=== PATIENT | female | born 1970 | race African-American/Black ===

== ENCOUNTER → 2016-10-16 | Outpatient (CLI) | payer MEDICAID ==
--- NOTE | 2016-10-16 13:22 | RADIOLOGY REPORT (SQ) ---
EXAM DESCRIPTION: U/S THYROID/SFT TISS HD NECK COMPLETED DATE/TIME: 10/16/2016 11:27 am REASON FOR STUDY: ABNORMAL THYROID E07.9 DISORDER OF THYROID, UNSPECIFIED COMPARISON: None. TECHNIQUE: Dynamic and static hughes-scale images acquired of the thyroid gland. Selected additional c olor/power Doppler images recorded. All images stored to PACS. LIMITATIONS: None. FINDINGS: RIGHT LOBE: Enlarged, measuring 5.2 cm. Heterogeneous echotexture. Multiple cysts and hy poechoic nodules ranging in size from 5 to 9 mm. LEFT LOBE: Enlarged, measuring 5.7 cm. Heterogeneous echotexture. Multiple cysts and hypoechoic nod ules. Most measure less than 1 cm but there is a dominant heterogenous solid and cystic nodule measu ring 1.5 x 1.9 x 2.4 cm. ISTHMUS: Thickened, measuring 1 cm. Heterogeneous echotexture. No cystic or solid masses. OTHER: No other significant finding. IMPRESSION: DIFFUSE THYROMEGALY WITH HETEROGENOUS ECHOTEXTURE. MULTIPLE NODULES AND CYSTS, MOST OF WHICH MEASURE LESS THAN 1 CM, CONSISTENT WITH MULTINODULAR GOITER. HOWEVER, THERE IS A DOMINANT COMP MUMTAZ SOLID AND CYSTIC NODULE IN THE LEFT LOBE MEASURING 2.4 CM. BIOPSY SHOULD BE CONSIDERED. THIS IS AMENABLE TO PERCUTANEOUS ULTRASOUND-GUIDED BIOPSY. COMMENT: RECOMMENDATIONS FOR THYROID NODULES 1 CM OR LARGER Solitary nodules: Microcalcifications - FNA if 1 cm or greater. Solid or coarse calcification - FNA if 1.5 cm or greater. Mixed Solid/Cystic or Cystic with Mural Nodule - FNA if 2 cm or greater. None of the above but substantial growth since previous - FNA. Cystic with none of the above features and no significant growth - no FNA. Multiple nodules: Use above criteria for selection of nodules to FNA/biopsy. Biopsy probably not necessary in enlarged gland with multiple nodules of similar appearance. Abnormal lymph nodes - FNA/biopsy. Reference: Management of Thyroid Nodules Detected at [place]: Society of Radiologists in Ultrasound Consensus Stateme nt. Radiology 2005; 237:794-800 TECHNICAL DOCUMENTATION: JOB ID: [id number] [employer]- All Rights Reserved
== END ==
LOC: RAD 10:56
PROVIDERS: ATTEND Family Medicine
DX: E04.1 Nontoxic single thyroid nodule (principal)
CPT/HCPCS: 76536

== ENCOUNTER → 2017-06-14 | Outpatient (CLI) | payer MEDICAID ==
[2017-06-14 10:28] LABS: ABSOLUTE EOSINOPHILS # (AUTO) 0.1 10^3/uL (0.0-0.6); ABSOLUTE LYMPHOCYTES (AUTO) 1.6 10^3/uL (0.5-4.7); ABSOLUTE MONOCYTES (AUTO) 0.5 10^3/uL (0.1-1.4); ABSOLUTE NEUT (AUTO) 4.4 10^3/uL (1.7-8.2); BASOPHILS % (AUTO) 0.7 % (0-2); EOSINOPHILS % (AUTO) 1.5 % (0-6); HEMATOCRIT 36.9 % (36.0-47.0); HEMOGLOBIN 12.7 g/dL (12.0-15.5); MEAN CORPUSCULAR HGB CONC 34.4 g/dL (32.0-36.0); MEAN CORPUSCULAR VOLUME 90 fl (80-97); MONOCYTES % (AUTO) 8.2 % (3-13); PLATELET COUNT 280 10^3/uL (150-450); RED BLOOD COUNT 4.09 10^6/uL (3.72-5.28); RED CELL DISTRIBUTION WIDTH 13.9 % (11.5-14.0); SEGMENTED NEUTROPHILS % (AUTO) 65.6 % (42-78); TOTAL CELLS COUNTED % (AUTO) 100 %; WHITE BLOOD COUNT 6.6 10^3/uL (4.0-10.5)
[2017-06-14 10:52] LABS: ALANINE AMINOTRANSFERASE 29 U/L (9-52); ALBUMIN 4.3 g/dL (3.5-5.0); ALKALINE PHOSPHATASE 76 U/L (38-126); ASPARTATE AMINO TRANSFERASE 20 U/L (14-36); BILIRUBIN,DIRECT 0.1 mg/dL (0.0-0.4); BILIRUBIN,TOTAL 0.2 mg/dL (0.2-1.3); BLOOD UREA NITROGEN 13 mg/dL (7-20); CALCIUM 9.5 mg/dL (8.4-10.2); CARBON DIOXIDE 26 mmol/L (22-30); CHOLESTEROL 183.42 mg/dL (0-200); GLUCOSE 84 mg/dL (75-110); TOTAL PROTEIN 7.3 g/dL (6.3-8.2); TRIGLYCERIDES 38 mg/dL (<150)
[2017-06-14 10:58] LABS: ANION GAP 9 (5-19); CHLORIDE 106 mmol/L (98-107); POTASSIUM 4.6 mmol/L (3.6-5.0); SODIUM 140.9 mmol/L (137-145)
[2017-06-14 11:03] LABS: DIRECT LDL 122 mg/dL (<100)
== END ==
LOC: OD 08:50
PROVIDERS: ATTEND Nurse Practitioner Psychiatric/Mental Health
DX: F20.9 Schizophrenia, unspecified (principal); Z79.899 Other long term (current) drug therapy
CPT/HCPCS: 36415; 80053; 80061; 83036; 84443; 85025

== ENCOUNTER → 2018-10-13 | Outpatient (CLI) | payer MEDICAID ==
--- NOTE | 2018-10-13 12:54 | RADIOLOGY REPORT (SQ) ---
EXAM DESCRIPTION: U/S THYROID/SFT TISS HD NECK COMPLETED DATE/TIME: 10/13/2018 11:52 am REASON FOR STUDY: ABN THYROID FUNCTION (R94.6) R94.6 ABNORMAL RESULTS OF THYROID FUNCTION STUDIES COMPARISON: 10/16/2016 TECHNIQUE: Dynamic and static hughes-scale images acquired of the thyroid gland. Selected additional c olor/power Doppler images recorded. All images stored to PACS. LIMITATIONS: None. FINDINGS: RIGHT LOBE: Enlarged, 8.2 x 2.5 x 3 cm. Heterogeneous echotexture. There is a complex le daniela in the upper pole that measures 1 cm in largest diameter. LEFT LOBE: Enlarged, 7.3 x 2.7 x 2.5 cm. Heterogeneous echotexture. There is a complex lesion in th e midportion of the left lobe measuring 2 cm in largest diameter. There is a 1.4 cm hypoechoic solid lesion in the left lower pole of the left lobe. ISTHMUS: Enlarged, 10 mm. Heterogeneous echotexture. No cystic or solid masses. OTHER: No other significant finding. IMPRESSION: Multinodular goiter. There are 2 lesions in the left lobe a that meet the size criteria for biopsy. COMMENT: RECOMMENDATIONS FOR THYROID NODULES 1 CM OR LARGER Solitary nodules: Microcalcifications - FNA if 1 cm or greater. Solid or coarse calcification - FNA if 1.5 cm or greater. Mixed Solid/Cystic or Cystic with Mural Nodule - FNA if 2 cm or greater. None of the above but substantial growth since previous - FNA. Cystic with none of the above features and no significant growth - no FNA. Multiple nodules: Use above criteria for selection of nodules to FNA/biopsy. Biopsy probably not necessary in enlarged gland with multiple nodules of similar appearance. Abnormal lymph nodes - FNA/biopsy. Reference: Management of Thyroid Nodules Detected at [place]: Society of Radiologists in Ultrasound Consensus Stateme nt. Radiology 2005; 237:794-800 TECHNICAL DOCUMENTATION: JOB ID: [id number] [employer]- All Rights Reserved Reading location - IP/workstation name: [email or web address]
== END ==
LOC: RAD 10:57
PROVIDERS: ATTEND Physician Assistant
DX: E04.2 Nontoxic multinodular goiter (principal)
CPT/HCPCS: 76536

== ENCOUNTER → 2018-12-21 | Outpatient (CLI) | payer MEDICAID ==
--- NOTE | 2018-12-21 23:54 | XCELERA REPORT ---
[address] [address] Transthoracic Echocardiogram Report Name: SASHA SHARMA Age: 48 yrs Gender: Female : 1970 Patient Status: Outpatient Patient Location: Study Date: 12/21/2018 10:55 AM Height: 60 in Weight: 143 lb BSA: 1.6 m2 Procedure: A two-dimensional transthoracic echocardiogram with color flow and Doppler was performed. Study Quality: Fair. Reason For Study: EDEMA History: EDEMA. Ordering Physician: FADI WEBB Performed By: Trini Carey Interpretation Summary The left ventricle is normal in size. There is normal left ventricular wall thickness. LV EF is 65% Left ventricular systolic function is normal. Doppler measurements suggest normal left ventricular diastolic function The left ventricular wall motion is normal. There is no thrombus. No ASD ,VSD , or PFO seen. The right ventricle is not well visualized secondary to technical limitations The right atrium is normal. The left atrial size is normal. There is no evidence of mitral valve prolapse. There is no vegetation seen on the mitral valve. There is no mitral valve stenosis. There is a trace amount of mitral regurgitation There is no aortic valve stenosis There is no LVOT obstruction. No aortic regurgitation is present. There is no tricuspid stenosis. Right ventricular systolic pressure is at the upper limits of normal RVSP is 27 mm of Hg , with RA mean of 5. There is no pulmonic valvular stenosis. There is a trace amount of pulmonic regurgitation The aortic root is normal size. There is no pericardial effusion. MMode/2D Measurements & Calculations RVDd: 2.9 cm LVIDd: 4.1 cm FS: 35.0 % Ao root diam: 2.3 cm IVSd: 0.70 cm LVIDs: 2.7 cm EDV(Teich): Ao root area: LVPWd: 0.85 cm 75.5 ml 4.2 cm2 ESV(Teich): 26.6 ml EF(Teich): 64.7 % EDV(MOD-sp4): SV(MOD-sp4): 63.1 ml 42.1 ml ESV(MOD-sp4): 21.1 ml EF(MOD-sp4): 66.7 % Doppler Measurements & Calculations MV E max maritza: MV dec slope: Ao V2 max: LV V1 max P.6 cm/sec 110.8 cm/sec 2.8 mmHg MV A max maritza: 608.0 cm/sec2 Ao max P.9 mmHgLV V1 max: 74.1 cm/sec MV dec time: 0.14 sec 83.0 cm/sec MV E/A: 1.2 PA V2 max: PI end-d maritza: TR max maritza: 72.9 cm/sec 67.4 cm/sec 233.2 cm/sec PA max P.1 mmHg TR max P.7 mmHg Left Ventricle The left ventricle is normal in size. There is normal left ventricular wall thickness. LV EF is 65%. Left ventricular systolic function is normal. Doppler measurements suggest normal left ventricular diastolic function. The left ventricular wall motion is normal. There is no thrombus. No ASD ,VSD , or PFO seen. Right Ventricle The right ventricle is not well visualized secondary to technical limitations. Atria The right atrium is normal. The left atrial size is normal. Mitral Valve There is no evidence of mitral valve prolapse. There is no vegetation seen on the mitral valve. There is no mitral valve stenosis. There is a trace amount of mitral regurgitation. Aortic Valve There is no aortic valvular vegetation. There is no aortic valve stenosis. There is no LVOT obstruction. No aortic regurgitation is present. Tricuspid Valve There is no tricuspid stenosis. Right ventricular systolic pressure is at the upper limits of normal. RVSP is 27 mm of Hg , with RA mean of 5. Pulmonic Valve There is no pulmonic valvular stenosis. There is a trace amount of pulmonic regurgitation. Great Vessels The aortic root is normal size. Effusions There is no pericardial effusion. : FADI WEBB > Ju Naik
== END ==
LOC: SP 10:33
PROVIDERS: ATTEND Physician Assistant
DX: R60.0 Localized edema (principal)
CPT/HCPCS: 93306

== ENCOUNTER → 2019-06-02 | Outpatient (CLI) | payer MEDICAID ==
--- NOTE | 2019-06-02 15:16 | WOMENS IMAGING REPORT ---
EXAM DESCRIPTION: 3D SCREENING MAMMO BILAT COMPLETED DATE/TIME: 06/02/2019 9:16 am REASON FOR STUDY: Z12.31 ENCOUNTER FOR SCREENING MAMMOGRAM FOR MALIGNANT NEOPLASM OF BREAST Z12.31 ENCNTR SCREEN MAMMOGRAM FOR MALIGNANT NEOPLASM OF MAK COMPARISON: 12/06/2014 EXAM PARAMETERS: Standard craniocaudal and mediolateral oblique views of each breast recorded using digital acquisition and breast tomosynthesis. Read with the assistance of CAD. .[facility] - Wow! Stuff Protection Officer Version 9.2 LIMITATIONS: None. FINDINGS: Findings present which are benign by mammographic criteria. No suspicious masses, calcific ations or architectural distortion. Pertinent benign findings: A benign intramammary lymph node in the right breast is unchanged. Benign mammographic findings may include one or more of the following: Smooth masses, popcorn/rim/coa rse calcifications, asymmetries, post-procedure changes, and lesions with long-standing stability. IMPRESSION: BENIGN MAMMOGRAPHIC FINDINGS. BIRADS 2 BREAST DENSITY: a. The breasts are almost entirely fatty. BIRAD: ASSESSMENT: 2 BENIGN FINDING(S) RECOMMENDATION: ROUTINE SCREENING COMMENT: The patient has been notified of the results by letter per SA requirements. Additional no tification policies are in place for contacting patient with suspicious or incomplete findings. Quality ID #[id number]: The [employer] recommends an annual screening mammogram for women aged 40 years or over. This facility utilizes a reminder system to ensure that all patients receive reminder letters, and/or direct phone calls for appointments. This includes reminders for routine scr eening mammograms, diagnostic mammograms, or other Breast Imaging Interventions when appropriate. Th is patient will be placed in the appropriate reminder system. TECHNICAL DOCUMENTATION: FINDING NUMBER: (1) ASSESSMENT: (1) JOB ID: [id number] [employer]- All Rights Reserved Reading location - IP/workstation name: [email or web address]
== END ==
LOC: WI 09:40
PROVIDERS: ATTEND Physician Assistant
DX: Z12.31 Encounter for screening mammogram for malignant neoplasm of breast (principal)
CPT/HCPCS: 77063; 77067

== ENCOUNTER 2019-08-25 13:06 | Emergency (ER) | payer MEDICAID ==
--- NOTE | 2019-08-25 13:32 | ER Document Report ---
ED Medical Screen (RME) - General Stated Complaint: ABNORMAL LABS Time Seen by Provider: 08/25/19 13:28 Primary Care Provider: MISA MAYER PA [Primary Care Provider] - Follow up as needed Mode of Arrival: Ambulatory Information source: Patient Notes: 49-year-old female patient presenting to the emergency department with reports of abnormal labs. Patient reports she was seen at Dr. Salas's office and they told her that her hemoglobin was very low. Patient is unsure what the exact number was. She states it was drawn yesterday. She denies any symptoms, states she feels fine denies weakness, fatigue, syncope, chest pain, shortness of breath. She appears well, nontoxic vital signs are within normal limits. I have greeted and performed a rapid initial assessment of this patient. A comprehensive ED assessment and evaluation of the patient, analysis of test results and completion of the medical decision making process will be conducted by additional ED providers. I have specifically instructed the patient or family members with the patient to immediately return to any nursing staff should anything change in the patient's condition or with their chief complaint. TRAVEL OUTSIDE OF THE [place] IN LAST 30 DAYS: No - Related Data Allergies/Adverse Reactions: No Known Allergies Allergy (Verified 08/25/19 13:28) Past Medical History - Past Medical History Cardiac Medical History: Reports: Hx Hypertension Renal/ Medical History: Reports: Hx Ovarian Cysts Psychiatric Medical History: Reports: Hx Schizophrenia Past Surgical History: Reports: Hx Appendectomy, Hx Gynecologic Surgery - Ruptured ovarian cyst removed Physical Exam - Vital signs Vitals: Temp Pulse Resp BP Pulse Ox 98.8 F 95 16 106/53 L 100 08/25/19 13:12 08/25/19 13:12 08/25/19 13:12 08/25/19 13:12 08/25/19 13:12 Course - Vital Signs Vital signs: Temp Pulse Resp BP Pulse Ox 98.8 F 95 16 106/53 L 100 08/25/19 13:12 08/25/19 13:12 08/25/19 13:12 08/25/19 13:12 08/25/19 13:12 Doctor's Discharge - Discharge Referrals: MISA MAYER PA [Primary Care Provider] - Follow up as needed
[2019-08-25] MEDS ORDERED: NORMAL SALINE 250 ML IV PRN ×2 (14:41→17:09)
[2019-08-25 14:47] LABS: ALBUMIN 3.7 g/dL (3.5-5.0); ALKALINE PHOSPHATASE 75 U/L (38-126); ASPARTATE AMINO TRANSFERASE 45 U/L (14-36); BILIRUBIN,DIRECT 0.2 mg/dL (0.0-0.4); BILIRUBIN,TOTAL 0.2 mg/dL (0.2-1.3); BLOOD UREA NITROGEN 10 mg/dL (7-20); CALCIUM 8.8 mg/dL (8.4-10.2); CARBON DIOXIDE 30 mmol/L (22-30); GLUCOSE 89 mg/dL (75-110); POTASSIUM 4.3 mmol/L (3.6-5.0); TOTAL PROTEIN 6.8 g/dL (6.3-8.2)
[2019-08-25 14:50] LABS: CHLORIDE 106 mmol/L (98-107)
[2019-08-25 14:54] LABS: ANION GAP 4 (5-19); HEMATOCRIT 16.7 % (36.0-47.0); MEAN CORPUSCULAR HEMOGLOBIN 34.8 pg (27.0-33.4); MEAN CORPUSCULAR HGB CONC 34.9 g/dL (32.0-36.0); MEAN CORPUSCULAR VOLUME 100 fl (80-97); RED BLOOD COUNT 1.67 10^6/uL (3.72-5.28); RED CELL DISTRIBUTION WIDTH 14.3 % (11.5-14.0); WHITE BLOOD COUNT 6.7 10^3/uL (4.0-10.5)
[2019-08-25 14:58] LABS: HEMOGLOBIN 5.8 g/dL (12.0-15.5)
[2019-08-25 14:59] LABS: PLATELET COUNT 18 10^3/uL (150-450)
[2019-08-25 16:01] LABS: ABSOLUTE LYMPHOCYTES# (MANUAL) 3.9 10^3/uL (0.5-4.7); ABSOLUTE MONOCYTES # (MANUAL) 0.5 10^3/uL (0.1-1.4); ANISOCYTOSIS SLIGHT; BASOPHILS % (MANUAL) 0 % (0-2); EOSINOPHILS % (MANUAL) 0 % (0-6); HYPOCHROMASIA SLIGHT; LYMPHOCYTES % (MANUAL) 38 % (13-45); MONOCYTES % (MANUAL) 8 % (3-13); OVALOCYTES SLIGHT; SEGMENTED NEUTROPHILS % (MAN) 7 % (42-78); TOTAL CELLS COUNTED 100
[2019-08-25 16:02] LABS: PLATELET COMMENT DECREASED
--- NOTE | 2019-08-25 17:17 | ER Document Report ---
ED General - General Chief Complaint: Abnormal Lab Results Stated Complaint: ABNORMAL LABS Time Seen by Provider: 08/25/19 13:28 Primary Care Provider: MISA MAYER PA [NO LOCAL MD] - Follow up as needed Mode of Arrival: Ambulatory TRAVEL OUTSIDE OF THE [place] IN LAST 30 DAYS: No - HPI Notes: Patient presents from Dr. Salas's office. She was sent here due to having a low hemoglobin at Dr. Salas's office. Patient states that the main reason she went to Dr. Salas's office today sees you been having bilateral arm pain for 2 to 3 days. She states been a diffuse achy pain and has been constant in both arms. Nothing makes it better or worse. It does radiate up both arms. She states she is also been feeling weak and has had been having her menstrual period for about 9 days. While she was at the office today a hemoglobin was drawn and was not iced to be 5.3. Platelets are also noted to be low. Therefore she was referred here to the emergency department. No vomiting or diarrhea. - Related Data Allergies/Adverse Reactions: No Known Allergies Allergy (Verified 08/25/19 13:28) Home Medications: atenolol, risperodone, meloxicam, fluoxetine, benztropine Past Medical History - General Information source: Patient - Social History Smoking Status: Never Smoker Chew tobacco use (# tins/day): No Frequency of alcohol use: None Drug Abuse: None Family History: Arthritis, CAD, CVA, DM, Hyperlipidemia, Hypertension, Malignancy, Thyroid Disfunction Patient has suicidal ideation: No Patient has homicidal ideation: No - Past Medical History Cardiac Medical History: Reports: Hx Hypertension Renal/ Medical History: Reports: Hx Ovarian Cysts Psychiatric Medical History: Reports: Hx Schizophrenia Past Surgical History: Reports: Hx Appendectomy, Hx Gynecologic Surgery - Ruptured ovarian cyst removed Review of Systems - Review of Systems Constitutional: Malaise, Weakness. denies: Chills, Fever Cardiovascular: denies: Chest pain, Palpitations Respiratory: denies: Cough, Short of breath -: Yes All other systems reviewed and negative Physical Exam - Vital signs Vitals: Temp Pulse Resp BP Pulse Ox 98.8 F 95 16 106/53 L 100 08/25/19 13:12 08/25/19 13:12 08/25/19 13:12 08/25/19 13:12 08/25/19 13:12 Interpretation: Normal - General General appearance: Appears well, Alert - HEENT Head: Normocephalic, Atraumatic Eyes: Normal Pupils: PERRL - Respiratory Respiratory status: No respiratory distress Chest status: Nontender Breath sounds: Normal Chest palpation: Normal - Cardiovascular Rhythm: Regular Heart sounds: Normal auscultation Murmur: No - Abdominal Inspection: Normal Distension: No distension Bowel sounds: Normal Tenderness: Nontender Organomegaly: No organomegaly - Back Back: Normal, Nontender - Extremities General upper extremity: Normal inspection, Nontender, Normal color, Normal ROM, Normal temperature General lower extremity: Normal inspection, Nontender, Normal color, Normal ROM, Normal temperature, Normal weight bearing. 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 Her hemoglobin will be treated with 2 units of RBCs. Her platelet count will be treated with a unit of platelets. I have discussed transfer with the [facility]. Patient has been informed of the diagnosis and need for transfer. - Vital Signs Vital signs: Temp Pulse Resp BP Pulse Ox 98.8 F 82 17 110/66 100 08/25/19 17:19 08/25/19 17:19 08/25/19 17:19 08/25/19 17:19 08/25/19 17:19 - Laboratory Result Diagrams: 08/25/19 14:08 08/25/19 14:08 Laboratory results interpreted by me: 08/25/19 08/25/19 08/25/19 14:08 14:08 14:08 RBC 1.67 L Hgb 5.8 L Hct 16.7 L MCV 100 H MCH 34.8 H RDW 14.3 H Plt Count 18 L* Seg Neuts % (Manual) 7 L Abs Neuts (Manual) 0.5 L Anion Gap 4 L AST 45 H ALT 41 H Crossmatch See Detail Critical Care Note - Critical Care Note Total time excluding time spent on procedures (mins): 50 Comments: Approximately 50 minutes of critical care time were spent managing this patient's acute leukemia with anemia and thrombocytopenia. This was spent talking with multiple consultants. It was spent doing multiple reassessments. There were spent reviewing labs. Discharge - Discharge Clinical Impression: Thrombocytopenia Acute leukemia Qualifiers: Leukemia Active/Remission status: without remission Qualified Code(s): C95.00 - Acute leukemia of unspecified cell type not having achieved remission Anemia Qualifiers: Anemia type: bone marrow failure Bone marrow failure anemia type: other bone marrow failure Qualified Code(s): D61.89 - Other specified aplastic anemias and other bone marrow failure syndromes Condition: Serious Disposition: [facility] Referrals: MISA MAYER PA [NO LOCAL MD] - Follow up as needed
[2019-08-25 17:20] LABS: IMMATURE MONONUCLEAR% (MANUAL) 47 % (0)
[2019-08-25 19:29] LABS: INTERNATIONAL RATION (INR) 1.27
[2019-08-25 19:30] LABS: FIBRINOGEN 252 mg/dL (209-497); PARTIAL THROMBOPLASTIN TIME 27.5 SEC (23.5-35.8)
[2019-08-25 19:50] VITALS: BP 112/65
--- NOTE | 2019-08-25 19:50 | ER Document Report ---
Doctor's Note Notes: 08/25/19 19:49 49-year-old lady primarily worked up today by Dr. Rajeev Luevano and found to have acute leukemia. She has been accepted now for transfer to the hematology oncology service at [facility]. I have completed the entire form and have reevaluated the patient at this time and feel that she is stable for transfer.
== END 2019-08-25 20:08 | disposition short-term general hospital (02) ==
LOC: ER 13:06
DX: D69.6 Thrombocytopenia, unspecified (principal); C95.00 Acute leukemia of unspecified cell type not having achieved remission; D61.89 Other specified aplastic anemias and other bone marrow failure syndromes; R79.89 Other specified abnormal findings of blood chemistry; M79.604 Pain in right leg; M79.605 Pain in left leg; R53.1 Weakness; Z79.899 Other long term (current) drug therapy; I10 Essential (primary) hypertension
CPT/HCPCS: 99291; 96360; 96361; 86900; 86901; 36415; 36430; 86850; 83615; 84550; 85025; 85384; 85610; 85730; 80053; 86920; P9016; P9035; J7050

== ENCOUNTER 2020-01-01 08:23 | Outpatient (CLI) | payer MEDICAID ==
[2020-01-01] MEDS ORDERED: FUROSEMIDE INJ/PF 20 MG/2 ML SDV IV PRN (08:44)
[2020-01-01] MEDS ORDERED: ACETAMINOPHEN 325 MG TABLET PO PRN (08:44)
[2020-01-01] MEDS ORDERED: DIPHENHYDRAMINE HCL 25 MG CAPSULE PO PRN (08:44)
[2020-01-01 10:26] LABS: HEMATOCRIT 17.7 % (36.0-47.0); MEAN CORPUSCULAR HEMOGLOBIN 32.5 pg (27.0-33.4); MEAN CORPUSCULAR HGB CONC 34.8 g/dL (32.0-36.0); MEAN CORPUSCULAR VOLUME 93 fl (80-97); RED CELL DISTRIBUTION WIDTH 20.9 % (11.5-14.0)
[2020-01-01 10:32] LABS: WHITE BLOOD COUNT 0.4 10^3/uL (4.0-10.5)
[2020-01-01 10:42] LABS: HEMOGLOBIN 6.2 g/dL (12.0-15.5); PLATELET COUNT 20 10^3/uL (150-450)
[2020-01-01] MEDS ORDERED: NORMAL SALINE INJ/PF 0.9% 10 ML SDV IV PRN (13:37)
[2020-01-01] MEDS ORDERED: MIDOSTAURIN 50 MG PO SCH (18:00)
[2020-01-01] MEDS ORDERED: BENZTROPINE MESYLATE 1 MG TABLET PO SCH (18:00)
[2020-01-01] MEDS ORDERED: RISPERIDONE 1 MG TABLET PO SCH (18:00)
[2020-01-01] MEDS ORDERED: FAMOTIDINE 20 MG TABLET PO SCH (18:00)
[2020-01-01 21:55] VITALS: BP 120/76
[2020-01-02] MEDS ORDERED: FLUOXETINE HCL 20 MG CAPSULE PO SCH (08:00)
[2020-01-02] MEDS ORDERED: MEDROXYPROGESTERONE ACET 10 MG TABLET PO SCH (08:00)
[2020-01-02] MEDS ORDERED: LEVOFLOXACIN 500 MG TABLET PO SCH (10:00)
[2020-01-02] MEDS ORDERED: FLUCONAZOLE 100 MG TABLET PO SCH (10:00)
[2020-01-02] MEDS ORDERED: VALACYCLOVIR HCL 500 MG TABLET PO SCH (10:00)
== END 2020-01-01 22:01 | disposition home or self-care (01) ==
LOC: II 08:23 → 4N 08:24 → II 22:01
PROVIDERS: ATTEND Internal Medicine
DX: D64.9 Anemia, unspecified (principal)
CPT/HCPCS: 86900; 86901; 36415; 36430; 86850; 86920; 96374; P9016; P9035; J3490 ×5; J1940; J1642

== ENCOUNTER 2020-02-06 19:25 | Inpatient (IN) | payer MEDICAID ==
[2020-02-06] MEDS ORDERED: ACETAMINOPHEN 325 MG TABLET PO ONE (20:08)
[2020-02-06] MEDS ORDERED: NORMAL SALINE 1000 ML 1,000 ML IV ONE (20:09)
--- NOTE | 2020-02-06 20:10 | ER Document Report ---
ED Medical Screen (RME) - General Chief Complaint: Fever Stated Complaint: FEVER,DIZZINESS/LUEKEMIA Time Seen by Provider: 02/06/20 20:08 Primary Care Provider: RONNA NAVARRO MD [Primary Care Provider] - Follow up as needed Notes: Patient presents with fever that started today. Patient complains of dizziness. Patient had nausea with vomiting 2 days ago but none since then. Patient denies any cough or cold symptoms. 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 I have greeted and performed a rapid initial assessment of this patient. A comprehensive ED assessment and evaluation of the patient, analysis of test results and completion of the medical decision making process will be conducted by additional ED providers. TRAVEL OUTSIDE OF THE [place] IN LAST 30 DAYS: No - Related Data Allergies/Adverse Reactions: No Known Allergies Allergy (Verified 08/25/19 13:28) Past Medical History - Past Medical History Cardiac Medical History: Reports: Hx Hypertension Renal/ Medical History: Reports: Hx Ovarian Cysts Psychiatric Medical History: Reports: Hx Schizophrenia Past Surgical History: Reports: Hx Appendectomy, Hx Gynecologic Surgery - Ruptured ovarian cyst removed Physical Exam - Vital signs Vitals: Temp Pulse Resp BP Pulse Ox 101.4 F H 108 H 18 114/65 99 02/06/20 19:33 02/06/20 19:33 02/06/20 19:33 02/06/20 19:33 02/06/20 19:33 - Respiratory Respiratory status: No respiratory distress - Cardiovascular Rhythm: Tachycardia Heart sounds: S1 appreciated, S2 appreciated Murmur: No Course - Vital Signs Vital signs: Temp Pulse Resp BP Pulse Ox 101.4 F H 108 H 18 114/65 99 02/06/20 19:33 02/06/20 19:33 02/06/20 19:33 02/06/20 19:33 02/06/20 19:33 Doctor's Discharge - Discharge Referrals: RONNA NAVARRO MD [Primary Care Provider] - Follow up as needed
[2020-02-06 21:23] LABS: APPEARANCE,URINE CLEAR; BILIRUBIN,URINE NEGATIVE (NEGATIVE); COLOR,URINE STRAW; GLUCOSE, URINE NEGATIVE (NEGATIVE); KETONES,URINE NEGATIVE (NEGATIVE); LEUKOCYTE ESTERASE,URINE NEGATIVE (NEGATIVE); NITRITE,URINE NEGATIVE (NEGATIVE); PROTEIN,URINE NEGATIVE (NEGATIVE); URINE SPECIFIC GRAVITY 1.002; UROBILINOGEN,URINE NEGATIVE mg/dL (<2.0)
--- NOTE | 2020-02-06 21:49 | RADIOLOGY REPORT (SQ) ---
CLINICAL INDICATION: fever. TECHNIQUE: A single portable AP view was obtained of the chest at 2122 hours. COMPARISON: February 12, 2016. FINDINGS: The cardiomediastinal silhouette is prominent but stable. The lungs are grossly clear. No evidence of effusion or pneumothorax. Laxity in the shoulders. Right IJ tunneled catheter is in good position IMPRESSION: No evidence of active intrathoracic disease.
[2020-02-06 21:52] LABS: VENOUS BLOOD BASE EXCESS -1.5 mmol/L; VENOUS BLOOD PCO2 37.4 mmHg (35-63); VENOUS BLOOD PH 7.41 (7.30-7.42)
[2020-02-06 22:01] LABS: ABSOLUTE LYMPHOCYTES (AUTO) 0.1 10^3/uL (0.5-4.7); EOSINOPHILS % (AUTO) 1.5 % (0-6); HEMATOCRIT 21.6 % (36.0-47.0); LYMPHOCYTES % (AUTO) 93.9 % (13-45); MEAN CORPUSCULAR HEMOGLOBIN 33.3 pg (27.0-33.4); MEAN CORPUSCULAR HGB CONC 35.3 g/dL (32.0-36.0); MEAN CORPUSCULAR VOLUME 94 fl (80-97); MONOCYTES % (AUTO) 3.8 % (3-13); RED BLOOD COUNT 2.28 10^6/uL (3.72-5.28); RED CELL DISTRIBUTION WIDTH 19.1 % (11.5-14.0); SEGMENTED NEUTROPHILS % (AUTO) 0.8 % (42-78); TOTAL CELLS COUNTED % (AUTO) 100 %
[2020-02-06 22:06] LABS: PROTHROMBIN TIME 14.4 SEC (11.4-15.4)
[2020-02-06 22:11] LABS: ALBUMIN 3.7 g/dL (3.5-5.0); ALKALINE PHOSPHATASE 100 U/L (38-126); ANION GAP 10 (5-19); ASPARTATE AMINO TRANSFERASE 15 U/L (14-36); BILIRUBIN,DIRECT 0.3 mg/dL (0.0-0.4); BILIRUBIN,TOTAL 0.7 mg/dL (0.2-1.3); BLOOD UREA NITROGEN 9 mg/dL (7-20); CARBON DIOXIDE 24 mmol/L (22-30); CHLORIDE 101 mmol/L (98-107); GLUCOSE 132 mg/dL (75-110); POTASSIUM 3.8 mmol/L (3.6-5.0); TOTAL PROTEIN 6.9 g/dL (6.3-8.2)
[2020-02-06 22:34] LABS: PLATELET COMMENT DECREASED
[2020-02-06 22:46] LABS: ANISOCYTOSIS 2+
[2020-02-06 22:50] LABS: OVALOCYTES SLIGHT
[2020-02-06 23:03] LABS: WHITE BLOOD COUNT 0.1 10^3/uL (4.0-10.5)
[2020-02-06 23:04] LABS: HEMOGLOBIN 7.6 g/dL (12.0-15.5); PLATELET COUNT 5 10^3/uL (150-450)
[2020-02-06] MEDS ORDERED: CEFEPIME 2 GM/D5W RTU 2 GM/50 ML RTUPB IV ONE (23:42)
--- NOTE | 2020-02-07 00:22 | ER Document Report ---
ED Fever - General Chief Complaint: Fever Stated Complaint: FEVER,DIZZINESS/LUEKEMIA Time Seen by Provider: 02/06/20 20:08 Primary Care Provider: RONNA NAVARRO MD [Primary Care Provider] - Follow up as needed TRAVEL OUTSIDE OF THE [place] IN LAST 30 DAYS: No - HPI Onset: Just prior to arrival Onset/Duration: Gradual Associated symptoms: Fever. denies: Chest pain, Chills, Nonproductive cough, Productive cough, Diarrhea, Headache, Nausea, Vomiting, Shortness of breath Notes: Patient is a 50-year-old female with a past medical history of leukemia on chemotherapy who presents with a fever. Patient states she measured a fever of 101.4 Fahrenheit. She states she has been fatigued and lightheaded. She denies a cough, diarrhea, nausea, vomiting, abdominal pain, or urinary symptoms. States she was at [facility] about 1 week ago where she gets her chemotherapy. She is currently on a chemotherapy pill. They are unsure of the names. Patient also follows with an oncologist here as well. - Related Data Allergies/Adverse Reactions: No Known Allergies Allergy (Verified 08/25/19 13:28) Past Medical History - Social History Smoking Status: Never Smoker Frequency of alcohol use: None Drug Abuse: None Family History: Arthritis, CAD, CVA, DM, Hyperlipidemia, Hypertension, Malignancy, Thyroid Disfunction - Past Medical History Cardiac Medical History: Reports: Hx Hypertension Renal/ Medical History: Reports: Hx Ovarian Cysts Psychiatric Medical History: Reports: Hx Schizophrenia Past Surgical History: Reports: Hx Appendectomy, Hx Gynecologic Surgery - Ruptured ovarian cyst removed Review of Systems - Review of Systems Notes: CONSTITUTIONAL: Positive for fever and fatigue. SKIN: No rash. HENT: No congestion, ear pain, or sore throat. EYES: No recent vision problems or eye pain. ENDOCRINE: No polyuria or polydipsia. CARDIOVASCULAR: No chest pain or edema. RESPIRATORY: No cough, shortness of breath, congestion, or wheezing. GASTROINTESTINAL: No abdominal pain, nausea, vomiting, bloody stools or diarrhe a. GENITOURINARY: No dysuria. MUSCULOSKELETAL: No joint pain or swelling. NEUROLOGIC: No seizures. No headache, focal weakness or sensory changes. Positive for lightheadedness. HEMATOLOGIC: No unusual bruising or bleeding. PSYCHIATRIC: No depression or anxiety. Physical Exam - Vital signs Vitals: Temp Pulse Resp BP Pulse Ox 101.4 F H 108 H 18 114/65 99 02/06/20 19:33 02/06/20 19:33 02/06/20 19:33 02/06/20 19:33 02/06/20 19:33 Interpretation: Febrile - Notes Notes: VITAL SIGNS: Febrile. GENERAL: No acute distress, non-toxic appearance. HEAD: Normal with no signs of head trauma. EYES: EOMI, conjunctiva normal, no discharge. EARS: Hearing grossly intact. NOSE: Normal. NECK: Normal range of motion, no tenderness, supple, no lymphadenopathy, No adenopathy, no JVD. CHEST: Clear breath sounds bilaterally. No wheezes, rales, or rhonchi. Port in right chest appears normal with out evidence of overlying infection. CARDIAC: Regular rate and rhythm. S1 and S2, without murmurs, gallops, or rubs. VASCULAR: No Edema. ABDOMEN: Normal and soft with no tenderness, no masses or pulsatile masses. GASTROINTESTINAL: Bowel sounds normal GENITOURINARY: Normal, No tenderness MUSCULOSKELETAL: Good range of motion of all major joints. Extremities without clubbing, cyanosis or edema. NEUROLOGICAL: Alert and oriented x 3. No focal sensory or strength deficits. Speech normal. Follows commands appropriately. PSYCHIATRIC: Normal Affect, judgement and mood. SKIN: Normal appearance with no rashes or lesions. Course - Re-evaluation Re-evalutation: 02/07/20 00:20 Patient is neutropenic. Her white blood cell count is 0.1. She also has low p latelets. Discussed with our on-call oncologist who stated that patient would be able to stay at our facility and be treated here for this. I ordered cefepime. She is receiving fluids. Will also order platelets. Discussed with the hospitalist for admission. Her and her family are agreeable to this. I do not see any obvious infection on her chest x-ray or urinalysis. - Vital Signs Vital signs: Temp Pulse Resp BP Pulse Ox 99.5 F 108 H 18 122/68 100 02/06/20 21:05 02/06/20 19:33 02/07/20 01:01 02/07/20 01:00 02/07/20 01:01 - Laboratory Result Diagrams: 02/06/20 21:35 02/06/20 21:35 Laboratory results interpreted by me: 02/06/20 02/06/20 02/06/20 20:43 21:35 21:35 WBC 0.1 L* RBC 2.28 L Hgb 7.6 L Hct 21.6 L RDW 19.1 H Plt Count 5 L* Lymph % (Auto) 93.9 H Absolute Neuts (auto) 0.0 L Absolute Lymphs (auto) 0.1 L Absolute Monos (auto) 0.0 L Seg Neutrophils % 0.8 L Sodium 134.9 L Glucose 132 H Urine Blood LARGE H - Diagnostic Test Radiology reviewed: Image reviewed, Reports reviewed Discharge - Discharge Clinical Impression: Pancytopenia, Neutropenic fever Disposition: ADMITTED INPATIENT Admitting Provider: [facility] Unit Admitted: Medical Floor Referrals: RONNA NAVARRO MD [Primary Care Provider] - Follow up as needed
[2020-02-07] MEDS ORDERED: NORMAL SALINE 250 ML IV PRN ×2 (01:01)
[2020-02-07] MEDS ORDERED: VANCOMYCIN HCL 0 MG in DEXTROSE 5%-WATER 250 ML IV NR (02:30)
[2020-02-07] MEDS ORDERED: VANCOMYCIN HCL INJ 1000 MG VIAL IV PRN (02:31)
--- NOTE | 2020-02-07 02:31 | EKG REPORT ---
SEVERITY:- ABNORMAL ECG - SINUS TACHYCARDIA PROBABLE POSTERIOR INFARCT : Confirmed by: Vahe Porras MD 07-Feb-2020 02:30:10
[2020-02-07] MEDS ORDERED: VANCOMYCIN HCL 1,250 MG in DEXTROSE 5%-WATER 250 ML IV ONE (02:45)
[2020-02-07] MEDS: NORMAL SALINE 1000 ML 1,000 ML IV PRN (03:25)
[2020-02-07] MEDS ORDERED: DIPHENHYDRAMINE HCL 25 MG CAPSULE PO PRN (05:00)
[2020-02-07] MEDS ORDERED: ACETAMINOPHEN 325 MG TABLET PO PRN ×2 (05:00→14:10)
--- NOTE | 2020-02-07 08:31 | PDOC CONSULTATION ---
Consultation Consult Date: 02/07/20 Attending physician:: KRISTAN HENNING Provider Consulted: RONNA NAVARRO Consult reason:: pt w/ known AML here w/ neutropenic fever, pancytopenia History of Present Illness Admission Date/PCP: 02/07/20 01:09 RONNA NAVARRO MD Patient complains of: Fever, weakness, chills History of Present Illness: SASHA SHARMA is a 50 year old female w/ h/o AML dx 08/2019, FLT 3 ITD, 7+3 + midostaurin completed at [facility], CR1 after that, started on consolidation HiDAC 09/2019, planned for 4 cycles, 4th cycle given about 1 wk at at [facility]. Is on oral drug midostaurin. Presents w/ fever 101 and pancytopenia. Discussed case with Dr. Saeed at [facility] leukemia program, she received the last cycle of consolidation chemotherapy planned. Thereafter she was being considered for transplant. But ultimately if transplant is not going to be done, she may just be watched. She will be held on the oral chemotherapeutic for the next 1 to 2 days to see how she does with the neutropenic fever. But Dr. Saeed recommended reinitiating be oral chemotherapeutic within 2 days if patient is stable. Past Medical History Cardiac Medical History: Reports: Hypertension Malignancy Medical History: Reports: Other - AML Past Surgical History Past Surgical History: Reports: Appendectomy, Other - BMBx Social History Information Source: Patient Smoking Status: Never Smoker Frequency of Alcohol Use: None Hx Recreational Drug Use: No Hx Prescription Drug Abuse: No - Advance Directive Resuscitation Status: Full Code Family History Family History: Arthritis, CAD, CVA, DM, Hyperlipidemia, Hypertension, Malignancy, Thyroid Disfunction Parental Family History Reviewed: Yes Children Family History Reviewed: Yes Sibling(s) Family History Reviewed.: Yes Medication/Allergy Home Medications: Benztropine Mesylate [Cogentin 1 mg Tablet] 1 mg PO BID 04/29/14 Fluoxetine HCl [Prozac 20 mg Capsule] 20 mg PO QAM 04/29/14 Risperidone [Risperdal] 3 mg PO BID 04/29/14 Famotidine [Pepcid 20 mg Tablet] 20 mg PO BID 01/01/20 Fluconazole [Diflucan] 400 mg PO DAILY 01/01/20 Levofloxacin [Levaquin 500 mg Tablet] 500 mg PO DAILY 01/01/20 Medroxyprogesterone Acet [Provera 10 mg Tablet] 10 mg PO QAM 01/01/20 Midostaurin [Rydapt] 50 mg PO BID 01/01/20 Valacyclovir HCl [Valtrex 500 mg Tablet] 500 mg PO DAILY 01/01/20 Allergies/Adverse Reactions: No Known Allergies Allergy (Verified 08/25/19 13:28) Review of Systems Constitutional: ABSENT: chills, fever(s), headache(s), weight gain, weight loss Eyes: ABSENT: visual disturbances Ears: ABSENT: hearing changes Cardiovascular: ABSENT: chest pain, dyspnea on exertion, edema, orthropnea, palpitations Respiratory: ABSENT: cough, hemoptysis Gastrointestinal: ABSENT: abdominal pain, constipation, diarrhea, hematemesis, hematochezia, nausea, vomiting Genitourinary: ABSENT: dysuria, hematuria Musculoskeletal: ABSENT: joint swelling Integumentary: ABSENT: rash, wounds Neurological: ABSENT: abnormal gait, abnormal speech, confusion, dizziness, focal weakness, syncope Psychiatric: ABSENT: anxiety, depression, homidical ideation, suicidal ideation Endocrine: ABSENT: cold intolerance, heat intolerance, polydipsia, polyuria Hematologic/Lymphatic: ABSENT: easy bleeding, easy bruising Physical Exam Vital Signs: Temp Pulse Resp BP Pulse Ox 99.3 F 100 17 118/63 100 02/07/20 02:45 02/07/20 07:00 02/07/20 02:45 02/07/20 02:45 02/07/20 02:45 Intake & Output 02/06/20 02/07/20 02/08/20 06:59 06:59 06:59 Intake Total 550 Balance 550 Weight 65.2 kg General appearance: PRESENT: no acute distress, well-developed, well-nourished Head exam: PRESENT: atraumatic, normocephalic Eye exam: PRESENT: conjunctiva pink, EOMI, PERRLA. ABSENT: scleral icterus Ear exam: PRESENT: normal external ear exam Mouth exam: PRESENT: moist, tongue midline Neck exam: ABSENT: carotid bruit, JVD, lymphadenopathy, thyromegaly Respiratory exam: PRESENT: clear to auscultation tank. ABSENT: rales, rhonchi, wheezes Cardiovascular exam: PRESENT: RRR. ABSENT: diastolic murmur, rubs, systolic mu rmur Pulses: PRESENT: normal dorsalis pedis pul Vascular exam: PRESENT: normal capillary refill GI/Abdominal exam: PRESENT: normal bowel sounds, soft. ABSENT: distended, guarding, mass, organolmegaly, rebound, tenderness Rectal exam: PRESENT: deferred Extremities exam: PRESENT: full ROM. ABSENT: calf tenderness, clubbing, pedal edema Neurological exam: PRESENT: alert, awake, oriented to person, oriented to place, oriented to time, oriented to situation, CN II-XII grossly intact. ABSENT: motor sensory deficit Psychiatric exam: PRESENT: appropriate affect, normal mood. ABSENT: homicidal ideation, suicidal ideation Skin exam: PRESENT: dry, intact, warm. ABSENT: cyanosis, rash Results Laboratory Results: 02/06/20 21:35 02/06/20 21:35 02/06/20 02/06/20 02/06/20 20:43 21:35 21:35 WBC 0.1 L* RBC 2.28 L Hgb 7.6 L Hct 21.6 L MCV 94 MCH 33.3 MCHC 35.3 RDW 19.1 H Plt Count 5 L* Seg Neutrophils % 0.8 L VBG pH VBG pCO2 VBG HCO3 VBG Base Excess Sodium 134.9 L Potassium 3.8 Chloride 101 Carbon Dioxide 24 Anion Gap 10 BUN 9 Creatinine 0.69 Est GFR ( Amer) > 60 Glucose 132 H Lactic Acid Calcium 9.0 Total Bilirubin 0.7 AST 15 Alkaline Phosphatase 100 Total Protein 6.9 Albumin 3.7 Urine Color STRAW Urine Appearance CLEAR Urine pH 6.0 Ur Specific [place] 1.002 Urine Protein NEGATIVE Urine Glucose (UA) NEGATIVE Urine Ketones NEGATIVE Urine Blood LARGE H Urine Nitrite NEGATIVE Ur Leukocyte Esterase NEGATIVE Urine WBC (Auto) 1 Urine RBC (Auto) 0 Blood Type Antibody Screen 02/06/20 02/06/20 02/07/20 21:35 21:35 00:10 WBC RBC Hgb Hct MCV MCH MCHC RDW Plt Count Seg Neutrophils % VBG pH 7.41 VBG pCO2 37.4 VBG HCO3 23.0 VBG Base Excess -1.5 Sodium Potassium Chloride Carbon Dioxide Anion Gap BUN Creatinine Est GFR ( Amer) Glucose Lactic Acid 0.8 Calcium Total Bilirubin AST Alkaline Phosphatase Total Protein Albumin Urine Color Urine Appearance Urine pH Ur Specific [place] Urine Protein Urine Glucose (UA) Urine Ketones Urine Blood Urine Nitrite Ur Leukocyte Esterase Urine WBC (Auto) Urine RBC (Auto) Blood Type O POSITIVE Antibody Screen NEGATIVE 02/07/20 02/07/20 01:00 04:06 WBC RBC Hgb Hct MCV MCH MCHC RDW Plt Count Seg Neutrophils % VBG pH VBG pCO2 VBG HCO3 VBG Base Excess Sodium Potassium Chloride Carbon Dioxide Anion Gap BUN Creatinine Est GFR ( Amer) Glucose Lactic Acid 1.6 0.9 Calcium Total Bilirubin AST Alkaline Phosphatase Total Protein Albumin Urine Color Urine Appearance Urine pH Ur Specific [place] Urine Protein Urine Glucose (UA) Urine Ketones Urine Blood Urine Nitrite Ur Leukocyte Esterase Urine WBC (Auto) Urine RBC (Auto) Blood Type Antibody Screen Impressions: Chest X-Ray 02/06/20 20:09 IMPRESSION: No evidence of active intrathoracic disease. Assessment & Plan - Diagnosis (1) Acute myeloid leukemia Qualifiers: Leukemia Active/Remission status: without remission Qualified Code(s): C92.00 - Acute myeloblastic leukemia, not having achieved remission Is this a current diagnosis for this admission?: Yes Plan: S/p cycle #4 of consolidation chemo. Being tx at [facility] but receiving supportive care thru our office, we will follow, will recommend restart of midostaurin (oral chemo) if patient stable for 2 days going forward. Patient will bring home medication to start if needed. (2) Neutropenic fever Is this a current diagnosis for this admission?: Yes Plan: Cont broad spec atbx w/ cefepime 2g IV q 8 + Vanc until ANC >1000. Vanc continued until cultures negative x 48 hours. will follow (3) Pancytopenia Is this a current diagnosis for this admission?: Yes Plan: Related to recent chemo, needs leukoreduced and irradiated blood and plt when need. Transfuse blood if hb <[address] <10 - Time Time Spent: Greater than 70 Minutes - Inpatient Certification Based on my medical assessment, after consideration of the patient's co morbidities, presenting symptoms, or acuity I expect that the services needed warrant INPATIENT care.: Yes I certify that my determination is in accordance with my understanding of Medicare's requirements for reasonable and necessary INPATIENT services [42 CFR 412.3e].: Yes Medical Necessity: Need For IV Fluids, Need for IV Antibiotics, Risk of Complication if Not Cared For in Hospital
[2020-02-07] MEDS ORDERED: CEFEPIME 2 GM/D5W RTU 2 GM/50 ML RTUPB IV SCH (10:00)
[2020-02-07] MEDS ORDERED: CEFEPIME HCL 2 GM in DEXTROSE 5%-WATER 50 ML IV SCH (10:00)
[2020-02-07] MEDS ORDERED: ENOXAPARIN SODIUM INJ 40 MG/0.4 ML DISP.SYRIN SUBCUT SCH (10:00)
--- NOTE | 2020-02-07 12:12 | PDOC H&P ---
History of Present Illness Admission Date/PCP: 02/07/20 01:09 RONNA NAVARRO MD Patient complains of: Fever History of Present Illness: SASHA SHARMA is a 50 year old female This is a 50-year-old female with a history of acute myeloid leukemia currently see the [facility] with the active chemotherapy and also see her Dr. Garth finnegan oncology came to the emergency department because starting the fever 101 and patient's white count was 0.1 and platelet was 5 which is mostly related to the chemotherapy neutropenic fever and decided to admit in the hospital for further evaluation and treatments Patient's denied any chest pain no short of breath no contact with any COVID Patient's denied any cough no congestions no abdominal pain no nausea no vomiting Discussed with the oncology suggest the continues the broad-spectrum IV antibiotic until the cultures back Past Medical History Cardiac Medical History: Reports: Hypertension Malignancy Medical History: Reports: Other - AML Malignancy History Note: Acute myelocytic leukemia Past Surgical History Past Surgical History: Reports: Appendectomy, Other - BMBx Social History Information Source: Patient Smoking Status: Never Smoker Electronic Cigarette use?: No Frequency of Alcohol Use: None Hx Recreational Drug Use: No Hx Prescription Drug Abuse: No - Advance Directive Resuscitation Status: Full Code Family History Family History: Arthritis, CAD, CVA, DM, Hyperlipidemia, Hypertension, Malignancy, Thyroid Disfunction Parental Family History Reviewed: Yes Children Family History Reviewed: Yes Sibling(s) Family History Reviewed.: Yes Medication/Allergy Home Medications: Benztropine Mesylate [Cogentin 1 mg Tablet] 1 mg PO BID 04/29/14 Fluoxetine HCl [Prozac 20 mg Capsule] 20 mg PO QAM 04/29/14 Risperidone [Risperdal] 3 mg PO BID 04/29/14 Famotidine [Pepcid 20 mg Tablet] 20 mg PO BID 01/01/20 Fluconazole [Diflucan] 400 mg PO DAILY 01/01/20 Levofloxacin [Levaquin 500 mg Tablet] 500 mg PO DAILY 01/01/20 Medroxyprogesterone Acet [Provera 10 mg Tablet] 10 mg PO QAM 01/01/20 Midostaurin [Rydapt] 50 mg PO BID 01/01/20 Valacyclovir HCl [Valtrex 500 mg Tablet] 500 mg PO DAILY 01/01/20 Ondansetron HCl [Zofran 8 mg Tablet] 8 mg PO Q8HP PRN 02/07/20 Polyethylene Glycol 3350 [Miralax Powder 17 gm/Packet] 1 packet PO DAILYP PRN 02/07/20 Tramadol HCl [Ultram 50 mg Tablet] 50 mg PO Q6HP PRN 02/07/20 Allergies/Adverse Reactions: No Known Allergies Allergy (Verified 08/25/19 13:28) Review of Systems Constitutional: PRESENT: fatigue, fever(s). ABSENT: chills, headache(s), weight gain, weight loss Eyes: ABSENT: visual disturbances Ears: ABSENT: hearing changes Cardiovascular: ABSENT: chest pain, dyspnea on exertion, edema, orthropnea, palpitations Respiratory: ABSENT: cough, hemoptysis Gastrointestinal: ABSENT: abdominal pain, constipation, diarrhea, hematemesis, hematochezia, nausea, vomiting Genitourinary: ABSENT: dysuria, hematuria Musculoskeletal: ABSENT: joint swelling Integumentary: ABSENT: rash, wounds Neurological: ABSENT: abnormal gait, abnormal speech, confusion, dizziness, f ocal weakness, syncope Psychiatric: ABSENT: anxiety, depression, homidical ideation, suicidal ideation Endocrine: ABSENT: cold intolerance, heat intolerance, menstrual abnormalities, polydipsia, polyuria Hematologic/Lymphatic: ABSENT: easy bleeding, easy bruising, lymphadenopathy Physical Exam Vital Signs: Temp Pulse Resp BP Pulse Ox 99.4 F 105 H 18 129/49 H 100 02/07/20 08:39 02/07/20 10:10 02/07/20 10:10 02/07/20 10:10 02/07/20 10:10 Intake & Output 02/06/20 02/07/20 02/08/20 06:59 06:59 06:59 Intake Total 550 286 Balance 550 286 Weight 65.2 kg General appearance: PRESENT: no acute distress, well-developed, well-nourished Head exam: PRESENT: atraumatic, normocephalic Eye exam: PRESENT: conjunctiva pink, EOMI, PERRLA. ABSENT: scleral icterus Ear exam: PRESENT: normal external ear exam Mouth exam: PRESENT: moist, tongue midline Neck exam: PRESENT: full ROM. ABSENT: carotid bruit, JVD, lymphadenopathy, thyromegaly Respiratory exam: PRESENT: clear to auscultation tank Cardiovascular exam: PRESENT: RRR. ABSENT: diastolic murmur, rubs, systolic murmur Pulses: PRESENT: normal dorsalis pedis pul, +2 pedal pulses bilateral Vascular exam: PRESENT: normal capillary refill GI/Abdominal exam: PRESENT: normal bowel sounds, soft. ABSENT: distended, guarding, mass, organolmegaly, rebound, tenderness Rectal exam: PRESENT: deferred Neurological exam: PRESENT: alert, awake, oriented to person, oriented to place, oriented to time, oriented to situation, CN II-XII grossly intact. ABSENT: motor sensory deficit Psychiatric exam: PRESENT: appropriate affect, normal mood. ABSENT: homicidal ideation, suicidal ideation Skin exam: PRESENT: dry, intact, warm. ABSENT: cyanosis, rash Results Laboratory Results: 02/06/20 21:35 02/06/20 21:35 02/06/20 02/06/20 02/06/20 20:43 21:35 21:35 WBC 0.1 L* RBC 2.28 L Hgb 7.6 L Hct 21.6 L MCV 94 MCH 33.3 MCHC 35.3 RDW 19.1 H Plt Count 5 L* Seg Neutrophils % 0.8 L VBG pH VBG pCO2 VBG HCO3 VBG Base Excess Sodium 134.9 L Potassium 3.8 Chloride 101 Carbon Dioxide 24 Anion Gap 10 BUN 9 Creatinine 0.69 Est GFR ( Amer) > 60 Glucose 132 H Lactic Acid Calcium 9.0 Total Bilirubin 0.7 AST 15 Alkaline Phosphatase 100 Total Protein 6.9 Albumin 3.7 Urine Color STRAW Urine Appearance CLEAR Urine pH 6.0 Ur Specific [place] 1.002 Urine Protein NEGATIVE Urine Glucose (UA) NEGATIVE Urine Ketones NEGATIVE Urine Blood LARGE H Urine Nitrite NEGATIVE Ur Leukocyte Esterase NEGATIVE Urine WBC (Auto) 1 Urine RBC (Auto) 0 Blood Type Antibody Screen 02/06/20 02/06/20 02/07/20 21:35 21:35 00:10 WBC RBC Hgb Hct MCV MCH MCHC RDW Plt Count Seg Neutrophils % VBG pH 7.41 VBG pCO2 37.4 VBG HCO3 23.0 VBG Base Excess -1.5 Sodium Potassium Chloride Carbon Dioxide Anion Gap BUN Creatinine Est GFR ( Amer) Glucose Lactic Acid 0.8 Calcium Total Bilirubin AST Alkaline Phosphatase Total Protein Albumin Urine Color Urine Appearance Urine pH Ur Specific [place] Urine Protein Urine Glucose (UA) Urine Ketones Urine Blood Urine Nitrite Ur Leukocyte Esterase Urine WBC (Auto) Urine RBC (Auto) Blood Type O POSITIVE Antibody Screen NEGATIVE 02/07/20 02/07/20 01:00 04:06 WBC RBC Hgb Hct MCV MCH MCHC RDW Plt Count Seg Neutrophils % VBG pH VBG pCO2 VBG HCO3 VBG Base Excess Sodium Potassium Chloride Carbon Dioxide Anion Gap BUN Creatinine Est GFR ( Amer) Glucose Lactic Acid 1.6 0.9 Calcium Total Bilirubin AST Alkaline Phosphatase Total Protein Albumin Urine Color Urine Appearance Urine pH Ur Specific [place] Urine Protein Urine Glucose (UA) Urine Ketones Urine Blood Urine Nitrite Ur Leukocyte Esterase Urine WBC (Auto) Urine RBC (Auto) Blood Type Antibody Screen Impressions: Chest X-Ray 02/06/20 20:09 IMPRESSION: No evidence of active intrathoracic disease. Assessment & Plan - Diagnosis (1) Acute myeloid leukemia Qualifiers: Leukemia Active/Remission status: without remission Qualified Code(s): C92.00 - Acute myeloblastic leukemia, not having achieved remission Is this a current diagnosis for this admission?: Yes Plan: Currently follow with the oncology (2) Neutropenic fever Is this a current diagnosis for this admission?: Yes Plan: Continues with broad-spectrum IV antibiotic (3) Pancytopenia Is this a current diagnosis for this admission?: Yes Plan: Replace the platelet and follow with the oncology (5) Major depression Qualifiers: Psychotic features: without psychotic features Is this a current diagnosis for this admission?: Yes Plan: Currently all stable (6) Schizophrenia Qualifiers: Schizophrenia type: unspecified Qualified Code(s): F20.9 - Schizophrenia, unspecified Is this a current diagnosis for this admission?: Yes - Time Time Spent: 50 to 70 Minutes Medications reviewed and adjusted accordingly: Yes Anticipated Discharge Disposition: Home with Home Health Anticipated Discharge Timeframe: within 72 hours - Inpatient Certification Based on my medical assessment, after consideration of the patient's comorbidities, presenting symptoms, or acuity I expect that the services needed warrant INPATIENT care.: Yes I certify that my determination is in accordance with my understanding of Medicare's requirements for reasonable and necessary INPATIENT services [42 CFR 412.3e].: Yes Medical Necessity: Significant Comorbidiites Make Outpatient Treatment Too Risky, Need Close Monitoring Due to Risk of Patient Decompensation, Need for IV Antibiotics Post Hospital Care: D/C Process Engineer Documentation - Plan Summary Plan Summary: Admit the patient's in the telemetry start on the broad-spectrum IV antibiotic continues to monitor follow-up with oncology
[2020-02-07] MEDS ORDERED: POLYETHYLENE GLYCOL 3350 POWDER 17 GM/1 PACKET PO PRN (13:02)
[2020-02-07] MEDS ORDERED: TRAMADOL HCL 50 MG TABLET PO PRN (13:02)
[2020-02-07] MEDS ORDERED: ONDANSETRON HCL 8 MG TABLET PO PRN (13:02)
[2020-02-07 13:07] LABS: PATH REVIEW PATHOLOGIST REVIEWED
[2020-02-07] MEDS: CEFEPIME HCL 2 GM in DEXTROSE 5%-WATER 50 ML IV SCH ×2 (13:39→22:00)
[2020-02-07 16:32] LABS: ABSOLUTE LYMPHOCYTES (AUTO) 0.2 10^3/uL (0.5-4.7); EOSINOPHILS % (AUTO) 0.2 % (0-6); HEMATOCRIT 18.1 % (36.0-47.0); LYMPHOCYTES % (AUTO) 96.6 % (13-45); MEAN CORPUSCULAR HEMOGLOBIN 33.2 pg (27.0-33.4); MEAN CORPUSCULAR HGB CONC 34.7 g/dL (32.0-36.0); MEAN CORPUSCULAR VOLUME 96 fl (80-97); MONOCYTES % (AUTO) 2.6 % (3-13); RED BLOOD COUNT 1.89 10^6/uL (3.72-5.28); RED CELL DISTRIBUTION WIDTH 19.6 % (11.5-14.0); SEGMENTED NEUTROPHILS % (AUTO) 0.6 % (42-78); TOTAL CELLS COUNTED % (AUTO) 100 %
[2020-02-07 16:35] LABS: PLATELET COUNT 135 10^3/uL (150-450)
[2020-02-07] MEDS ORDERED: (PENDING PHARMACY ID) (Risperidone [Risperdal] 3 MG) PO SCH (18:00)
[2020-02-07] MEDS ORDERED: MIDOSTAURIN 50 MG PO SCH (18:00)
[2020-02-07] MEDS: VANCOMYCIN HCL 1,000 MG in DEXTROSE 5%-WATER 250 ML IV SCH (18:18)
[2020-02-07] MEDS: RISPERIDONE 1 MG TABLET PO SCH (18:19)
[2020-02-07] MEDS: BENZTROPINE MESYLATE 1 MG TABLET PO SCH (18:19)
[2020-02-07] MEDS: FAMOTIDINE 20 MG TABLET PO SCH (18:19)
[2020-02-07 18:21] LABS: ANISOCYTOSIS 2+
[2020-02-07 18:23] LABS: PLATELET COMMENT DECREASED
[2020-02-07 18:24] LABS: WHITE BLOOD COUNT 0.2 10^3/uL (4.0-10.5)
[2020-02-07 18:26] LABS: HEMOGLOBIN 6.3 g/dL (12.0-15.5)
[2020-02-07] MEDS ORDERED: FUROSEMIDE INJ/PF 20 MG/2 ML SDV IV PRN (19:15)
[2020-02-08] MEDS: NORMAL SALINE 1000 ML 1,000 ML IV PRN (00:17)
[2020-02-08] MEDS ORDERED: ACETAMINOPHEN 325 MG TABLET PO PRN (05:00)
[2020-02-08] MEDS ORDERED: DIPHENHYDRAMINE HCL 25 MG CAPSULE PO PRN (05:00)
[2020-02-08] MEDS ORDERED: FUROSEMIDE INJ/PF 20 MG/2 ML SDV IV PRN (05:00)
[2020-02-08] MEDS: CEFEPIME HCL 2 GM in DEXTROSE 5%-WATER 50 ML IV SCH ×2 (06:49→13:43)
[2020-02-08] MEDS: VANCOMYCIN HCL 1,000 MG in DEXTROSE 5%-WATER 250 ML IV SCH ×2 (06:49→18:51)
[2020-02-08 07:21] LABS: BLOOD UREA NITROGEN 10 mg/dL (7-20); CALCIUM 8.4 mg/dL (8.4-10.2); GLUCOSE 103 mg/dL (75-110); POTASSIUM 4.2 mmol/L (3.6-5.0)
[2020-02-08 07:22] LABS: CARBON DIOXIDE 25 mmol/L (22-30)
[2020-02-08 07:24] LABS: ALBUMIN 2.9 g/dL (3.5-5.0); ALKALINE PHOSPHATASE 73 U/L (38-126); ASPARTATE AMINO TRANSFERASE 12 U/L (14-36)
[2020-02-08 07:25] LABS: BILIRUBIN,DIRECT 0.2 mg/dL (0.0-0.4); BILIRUBIN,TOTAL 0.3 mg/dL (0.2-1.3)
[2020-02-08 07:26] LABS: ANION GAP 5 (5-19); CHLORIDE 109 mmol/L (98-107); TOTAL PROTEIN 5.7 g/dL (6.3-8.2)
--- NOTE | 2020-02-08 07:53 | PDOC PROGRESS REPORT ---
Subjective Progress Note for:: 02/08/20 Subjective:: Feeling better. Doing ok this am. Pt responded very well to plt transfusion. Blood tx pending this am, awaiting irradiated products. Reviewed cultures and saw that 1/2 Bx +GPC but was coag neg staph? contaminant? Reason For Visit: FEBRILE NEUTROPENIA,CHEMOTHERAPY RELATED Physical Exam Vital Signs: Temp Pulse Resp BP Pulse Ox 98.4 F 92 16 100/59 L 98 02/08/20 03:58 02/08/20 03:58 02/08/20 03:58 02/08/20 03:58 02/08/20 03:58 Intake & Output 02/07/20 02/08/20 02/09/20 06:59 06:59 06:59 Intake Total 550 3891 Output Total 0 Balance 550 3891 Weight 65.2 kg 72.1 kg General appearance: PRESENT: no acute distress, well-developed, well-nourished Head exam: PRESENT: atraumatic, normocephalic Eye exam: PRESENT: conjunctiva pink, EOMI, PERRLA. ABSENT: scleral icterus Ear exam: PRESENT: normal external ear exam Mouth exam: PRESENT: moist, tongue midline Neck exam: ABSENT: carotid bruit, JVD, lymphadenopathy, thyromegaly Respiratory exam: PRESENT: clear to auscultation tank. ABSENT: rales, rhonchi, wheezes Cardiovascular exam: PRESENT: RRR. ABSENT: diastolic murmur, rubs, systolic murmur Pulses: PRESENT: normal dorsalis pedis pul Vascular exam: PRESENT: normal capillary refill GI/Abdominal exam: PRESENT: normal bowel sounds, soft. ABSENT: distended, guarding, mass, organolmegaly, rebound, tenderness Rectal exam: PRESENT: deferred Extremities exam: PRESENT: full ROM. ABSENT: calf tenderness, clubbing, pedal edema Neurological exam: PRESENT: alert, awake, oriented to person, oriented to place, oriented to time, oriented to situation, CN II-XII grossly intact. ABSENT: motor sensory deficit Psychiatric exam: PRESENT: appropriate affect, normal mood. ABSENT: homicidal ideation, suicidal ideation Skin exam: PRESENT: dry, intact, warm. ABSENT: cyanosis, rash Results Laboratory Results: 02/08/20 05:39 02/07/20 02/07/20 02/08/20 00:10 15:30 05:39 WBC 0.2 L* RBC 1.89 L Hgb 6.3 L Hct 18.1 L MCV 96 MCH 33.2 MCHC 34.7 RDW 19.6 H Plt Count 135 L D Seg Neutrophils % 0.6 L Sodium 139.2 Potassium 4.2 Chloride 109 H Carbon Dioxide 25 Anion Gap 5 BUN 10 Creatinine 0.62 Est GFR ( Amer) > 60 Glucose 103 Calcium 8.4 Total Bilirubin 0.3 AST 12 L Alkaline Phosphatase 73 Total Protein 5.7 L Albumin 2.9 L Blood Type O POSITIVE Antibody Screen NEGATIVE Impressions: Chest X-Ray 02/06/20 20:09 IMPRESSION: No evidence of active intrathoracic disease. Assessment & Plan - Diagnosis (1) Acute myeloid leukemia Qualifiers: Leukemia Active/Remission status: without remission Qualified Code(s): C92.00 - Acute myeloblastic leukemia, not having achieved remission Is this a current diagnosis for this admission?: Yes Plan: Continuing to monitor. We will see how pt does, may reinitiate oral med by tomorrow if pt cont to improve (2) Neutropenic fever Is this a current diagnosis for this admission?: Yes Plan: Cont current atbx. Await final ID of 1/2 +Bcx. may need repeat cx (3) Pancytopenia Is this a current diagnosis for this admission?: Yes Plan: Plt good now, awaiting PRBC - Time Time Spent with patient: 35 or more minutes
[2020-02-08 08:01] LABS: ABSOLUTE LYMPHOCYTES (AUTO) 0.1 10^3/uL (0.5-4.7); EOSINOPHILS % (AUTO) 0.9 % (0-6); HEMATOCRIT 16.6 % (36.0-47.0); LYMPHOCYTES % (AUTO) 94.3 % (13-45); MEAN CORPUSCULAR HEMOGLOBIN 33.5 pg (27.0-33.4); MEAN CORPUSCULAR HGB CONC 35.3 g/dL (32.0-36.0); MEAN CORPUSCULAR VOLUME 95 fl (80-97); MONOCYTES % (AUTO) 2.3 % (3-13); PLATELET COUNT 110 10^3/uL (150-450); RED BLOOD COUNT 1.75 10^6/uL (3.72-5.28); RED CELL DISTRIBUTION WIDTH 19.5 % (11.5-14.0); SEGMENTED NEUTROPHILS % (AUTO) 2.5 % (42-78); TOTAL CELLS COUNTED % (AUTO) 100 %
[2020-02-08 08:29] LABS: HEMOGLOBIN 5.9 g/dL (12.0-15.5); WHITE BLOOD COUNT 0.2 10^3/uL (4.0-10.5)
[2020-02-08 08:34] LABS: ANISOCYTOSIS 2+; PLATELET COMMENT DECREASED
--- NOTE | 2020-02-08 08:55 | PDOC PROGRESS REPORT ---
Subjective Progress Note for:: 02/08/20 Subjective:: Patient is currently doing well Patient's denied any chest pain no short of breath Is received the blood in the platelet last platelet count was 110 Patient's blood culture is positive currently on IV antibiotic Reason For Visit: FEBRILE NEUTROPENIA,CHEMOTHERAPY RELATED Physical Exam Vital Signs: Temp Pulse Resp BP Pulse Ox 98.4 F 92 16 100/59 L 98 02/08/20 03:58 02/08/20 03:58 02/08/20 03:58 02/08/20 03:58 02/08/20 03:58 Intake & Output 02/07/20 02/08/20 02/09/20 06:59 06:59 06:59 Intake Total 550 3891 Output Total 0 Balance 550 3891 Weight 65.2 kg 72.1 kg General appearance: PRESENT: no acute distress, well-developed, well-nourished Head exam: PRESENT: atraumatic, normocephalic Eye exam: PRESENT: conjunctiva pink, EOMI, PERRLA. ABSENT: scleral icterus Ear exam: PRESENT: normal external ear exam Mouth exam: PRESENT: moist, tongue midline Neck exam: PRESENT: full ROM. ABSENT: carotid bruit, JVD, lymphadenopathy, thyromegaly Respiratory exam: PRESENT: clear to auscultation tank Cardiovascular exam: PRESENT: RRR. ABSENT: diastolic murmur, rubs, systolic murmur Vascular exam: PRESENT: normal capillary refill GI/Abdominal exam: PRESENT: normal bowel sounds, soft. ABSENT: distended, guarding, mass, organolmegaly, rebound, tenderness Rectal exam: PRESENT: deferred Neurological exam: PRESENT: alert, awake, oriented to person, oriented to place, oriented to time, oriented to situation, CN II-XII grossly intact. ABSENT: motor sensory deficit Psychiatric exam: PRESENT: appropriate affect, normal mood. ABSENT: homicidal ideation, suicidal ideation Skin exam: PRESENT: dry, intact, warm. ABSENT: cyanosis, rash Results Laboratory Results: 02/08/20 05:39 02/08/20 05:39 02/07/20 02/07/20 02/08/20 00:10 15:30 05:39 WBC 0.2 L* 0.2 L* RBC 1.89 L 1.75 L Hgb 6.3 L 5.9 L Hct 18.1 L 16.6 L MCV 96 95 MCH 33.2 33.5 H MCHC 34.7 35.3 RDW 19.6 H 19.5 H Plt Count 135 L D 110 L Seg Neutrophils % 0.6 L 2.5 L Sodium Potassium Chloride Carbon Dioxide Anion Gap BUN Creatinine Est GFR ( Amer) Glucose Calcium Total Bilirubin AST Alkaline Phosphatase Total Protein Albumin Blood Type O POSITIVE Antibody Screen NEGATIVE 02/08/20 05:39 WBC RBC Hgb Hct MCV MCH MCHC RDW Plt Count Seg Neutrophils % Sodium 139.2 Potassium 4.2 Chloride 109 H Carbon Dioxide 25 Anion Gap 5 BUN 10 Creatinine 0.62 Est GFR ( Amer) > 60 Glucose 103 Calcium 8.4 Total Bilirubin 0.3 AST 12 L Alkaline Phosphatase 73 Total Protein 5.7 L Albumin 2.9 L Blood Type Antibody Screen 02/07/20 01:00 Blood Blood Culture (PCR) - Final Staphylococcus Species Impressions: Chest X-Ray 02/06/20 20:09 IMPRESSION: No evidence of active intrathoracic disease. Assessment & Plan - Diagnosis (1) Acute myeloid leukemia Qualifiers: Leukemia Active/Remission status: without remission Qualified Code(s): C92.00 - Acute myeloblastic leukemia, not having achieved remission Is this a current diagnosis for this admission?: Yes Plan: Currently follow with the oncology (2) Neutropenic fever Is this a current diagnosis for this admission?: Yes Plan: Continues the broad-spectrum IV antibiotic wait for the fully culture and sensitivity (3) Pancytopenia Is this a current diagnosis for this admission?: Yes Plan: Is post chemotherapy follow-up with the oncology (4) Essential hypertension Is this a current diagnosis for this admission?: Yes Plan: Currently all stable (5) Major depression Qualifiers: Psychotic features: without psychotic features Is this a current diagnosis for this admission?: Yes Plan: Patient follow-up with the psych continues to current medications (6) Schizophrenia Qualifiers: Schizophrenia type: unspecified Qualified Code(s): F20.9 - Schizophrenia, unspecified Is this a current diagnosis for this admission?: Yes Plan: Currently all stable continues to current medications (7) Sepsis Qualifiers: Sepsis type: sepsis due to unspecified organism Severe sepsis shock status: unspecified Is this a current diagnosis for this admission?: Yes Plan: Continues IV fluid continues IV antibiotic - Time Time Spent with patient: 25-34 minutes Level of Care: TELE Medications reviewed and adjusted accordingly: Yes Anticipated discharge: Home Anticipated DC Timeframe: Other - Plan Summary Plan Summary: Continues to current medications follow the vancomycin peak and trough per pharmacy
[2020-02-08] MEDS: FLUOXETINE HCL 20 MG CAPSULE PO SCH (09:41)
[2020-02-08] MEDS: VALACYCLOVIR HCL 500 MG TABLET PO SCH (09:41)
[2020-02-08] MEDS: RISPERIDONE 1 MG TABLET PO SCH ×2 (09:42→18:14)
[2020-02-08] MEDS: FLUCONAZOLE 100 MG TABLET PO SCH (09:42)
[2020-02-08] MEDS: BENZTROPINE MESYLATE 1 MG TABLET PO SCH ×2 (09:42→18:15)
[2020-02-08] MEDS: MEDROXYPROGESTERONE ACET 10 MG TABLET PO SCH (09:42)
[2020-02-08] MEDS: FAMOTIDINE 20 MG TABLET PO SCH ×2 (09:42→18:15)
[2020-02-09] MEDS: CEFEPIME HCL 2 GM in DEXTROSE 5%-WATER 50 ML IV SCH ×2 (02:36→05:14)
[2020-02-09] MEDS: VANCOMYCIN HCL 1,000 MG in DEXTROSE 5%-WATER 250 ML IV SCH (05:13)
[2020-02-09 06:48] LABS: ABSOLUTE LYMPHOCYTES (AUTO) 0.2 10^3/uL (0.5-4.7); EOSINOPHILS % (AUTO) 0.5 % (0-6); HEMATOCRIT 26.6 % (36.0-47.0); LYMPHOCYTES % (AUTO) 89.8 % (13-45); MEAN CORPUSCULAR HEMOGLOBIN 32.5 pg (27.0-33.4); MEAN CORPUSCULAR HGB CONC 35.2 g/dL (32.0-36.0); MEAN CORPUSCULAR VOLUME 92 fl (80-97); MONOCYTES % (AUTO) 2.6 % (3-13); RED BLOOD COUNT 2.89 10^6/uL (3.72-5.28); RED CELL DISTRIBUTION WIDTH 17.4 % (11.5-14.0); SEGMENTED NEUTROPHILS % (AUTO) 7.1 % (42-78); TOTAL CELLS COUNTED % (AUTO) 100 %
[2020-02-09 06:57] LABS: ANION GAP 8 (5-19); BLOOD UREA NITROGEN 14 mg/dL (7-20); CARBON DIOXIDE 24 mmol/L (22-30); CHLORIDE 107 mmol/L (98-107); GLUCOSE 134 mg/dL (75-110); POTASSIUM 3.9 mmol/L (3.6-5.0)
[2020-02-09 07:02] LABS: VANCOMYCIN,TROUGH 9.8 ug/mL (5.0-20.0)
[2020-02-09 07:25] LABS: HEMOGLOBIN 9.4 g/dL (12.0-15.5); PLATELET COUNT 90 10^3/uL (150-450)
[2020-02-09 07:32] LABS: ANISOCYTOSIS 1+; PLATELET COMMENT DECREASED
[2020-02-09 07:38] LABS: WHITE BLOOD COUNT 0.2 10^3/uL (4.0-10.5)
--- NOTE | 2020-02-09 07:47 | PDOC PROGRESS REPORT ---
Subjective Progress Note for:: 02/09/20 Subjective:: Feeling well today, hb improved post transfusion, plt stable. REviewed blood cultures, at some point need to repeat to ensure clearance. Also, will restart her home oral chemo midostaurin, asked nursing to place order and contact brother to bring in. Reason For Visit: FEBRILE NEUTROPENIA,CHEMOTHERAPY RELATED Physical Exam Vital Signs: Temp Pulse Resp BP Pulse Ox 97.6 F 83 18 122/64 98 02/09/20 02:30 02/09/20 02:30 02/09/20 02:30 02/09/20 02:30 02/09/20 02:30 Intake & Output 02/08/20 02/09/20 02/10/20 06:59 06:59 06:59 Intake Total 3891 3920 Output Total 0 450 Balance 3891 3470 Weight 72.1 kg 72.7 kg General appearance: PRESENT: no acute distress, well-developed, well-nourished Head exam: PRESENT: atraumatic, normocephalic Eye exam: PRESENT: conjunctiva pink, EOMI, PERRLA. ABSENT: scleral icterus Ear exam: PRESENT: normal external ear exam Mouth exam: PRESENT: moist, tongue midline Neck exam: ABSENT: carotid bruit, JVD, lymphadenopathy, thyromegaly Respiratory exam: PRESENT: clear to auscultation tank. ABSENT: rales, rhonchi, wheezes Cardiovascular exam: PRESENT: RRR. ABSENT: diastolic murmur, rubs, systolic murmur Pulses: PRESENT: normal dorsalis pedis pul Vascular exam: PRESENT: normal capillary refill GI/Abdominal exam: PRESENT: normal bowel sounds, soft. ABSENT: distended, guarding, mass, organolmegaly, rebound, tenderness Rectal exam: PRESENT: deferred Extremities exam: PRESENT: full ROM. ABSENT: calf tenderness, clubbing, pedal edema Neurological exam: PRESENT: alert, awake, oriented to person, oriented to place, oriented to time, oriented to situation, CN II-XII grossly intact. ABSENT: motor sensory deficit Psychiatric exam: PRESENT: appropriate affect, normal mood. ABSENT: homicidal ideation, suicidal ideation Skin exam: PRESENT: dry, intact, warm. ABSENT: cyanosis, rash Results Laboratory Results: 02/09/20 04:45 02/09/20 04:45 02/07/20 02/08/2020 00:10 05:39 04:45 WBC 0.2 L* RBC 1.75 L Hgb 5.9 L Hct 16.6 L MCV 95 MCH 33.5 H MCHC 35.3 RDW 19.5 H Plt Count 110 L Seg Neutrophils % 2.5 L Sodium 139.3 Potassium 3.9 Chloride 107 Carbon Dioxide 24 Anion Gap 8 BUN 14 Creatinine 0.65 Est GFR ( Amer) > 60 Glucose 134 H Calcium 9.0 Blood Type O POSITIVE Antibody Screen NEGATIVE 02/09/20 04:45 WBC 0.2 L* RBC 2.89 L Hgb 9.4 L D Hct 26.6 L MCV 92 MCH 32.5 MCHC 35.2 RDW 17.4 H Plt Count 90 L Seg Neutrophils % 7.1 L Sodium Potassium Chloride Carbon Dioxide Anion Gap BUN Creatinine Est GFR ( Amer) Glucose Calcium Blood Type Antibody Screen 02/07/20 05:42 Blood Blood Culture (PCR) - Final Staphylococcus Species 02/06/20 21:35 Blood Blood Culture (PCR) - Final Staphylococcus Species 02/07/20 01:00 Blood Blood Culture (PCR) - Final Staphylococcus Species Impressions: Chest X-Ray 02/06/20 20:09 IMPRESSION: No evidence of active intrathoracic disease. Assessment & Plan - Diagnosis (1) Acute myeloid leukemia Qualifiers: Leukemia Active/Remission status: without remission Qualified Code(s): C92.00 - Acute myeloblastic leukemia, not having achieved remission Is this a current diagnosis for this admission?: Yes Plan: Restart midostaurin. Cont to monitor (2) Neutropenic fever Is this a current diagnosis for this admission?: Yes Plan: Cont abtx, primary team should reepeat bcx either today or tomorrow to ensure clearance (3) Pancytopenia Is this a current diagnosis for this admission?: Yes Plan: Counts stable post transfusion - Time Time Spent with patient: 35 or more minutes
[2020-02-09] MEDS: MEDROXYPROGESTERONE ACET 10 MG TABLET PO SCH (08:53)
[2020-02-09] MEDS: FLUOXETINE HCL 20 MG CAPSULE PO SCH (08:53)
[2020-02-09] MEDS: FAMOTIDINE 20 MG TABLET PO SCH ×2 (09:54→19:31)
[2020-02-09] MEDS: BENZTROPINE MESYLATE 1 MG TABLET PO SCH ×2 (09:55→19:47)
[2020-02-09] MEDS: FLUCONAZOLE 100 MG TABLET PO SCH (09:55)
[2020-02-09] MEDS: VALACYCLOVIR HCL 500 MG TABLET PO SCH (10:04)
[2020-02-09] MEDS: RISPERIDONE 1 MG TABLET PO SCH ×2 (10:04→19:31)
--- NOTE | 2020-02-09 11:39 | PDOC PROGRESS REPORT ---
Subjective Progress Note for:: 02/09/20 Subjective:: Patient is feeling better Low-grade temperatures 99.5 yesterday last night Patient's blood cultures from the line and from the peripheral both positive for Staphylococcus species Patient's denied any chest pain no short of breath Reason For Visit: FEBRILE NEUTROPENIA,CHEMOTHERAPY RELATED Physical Exam Vital Signs: Temp Pulse Resp BP Pulse Ox 97.6 F 84 18 122/64 98 02/09/20 02:30 02/09/20 07:00 02/09/20 02:30 02/09/20 02:30 02/09/20 02:30 Intake & Output 02/08/20 02/09/20 02/10/20 06:59 06:59 06:59 Intake Total 3891 3920 Output Total 0 450 Balance 3891 3470 Weight 72.1 kg 72.7 kg General appearance: PRESENT: no acute distress, well-developed, well-nourished Head exam: PRESENT: atraumatic, normocephalic Eye exam: PRESENT: conjunctiva pink, EOMI, PERRLA. ABSENT: scleral icterus Ear exam: PRESENT: normal external ear exam Mouth exam: PRESENT: moist, tongue midline Neck exam: PRESENT: full ROM. ABSENT: carotid bruit, JVD, lymphadenopathy, thyromegaly Respiratory exam: PRESENT: clear to auscultation tank Cardiovascular exam: PRESENT: RRR. ABSENT: diastolic murmur, rubs, systolic murmur Pulses: PRESENT: normal dorsalis pedis pul, +2 pedal pulses bilateral Vascular exam: PRESENT: normal capillary refill GI/Abdominal exam: PRESENT: normal bowel sounds, soft. ABSENT: distended, guarding, mass, organolmegaly, rebound, tenderness Rectal exam: PRESENT: deferred Neurological exam: PRESENT: alert, awake, oriented to person, oriented to place, oriented to time, oriented to situation, CN II-XII grossly intact. ABSENT: motor sensory deficit Psychiatric exam: PRESENT: appropriate affect, normal mood. ABSENT: homicidal ideation, suicidal ideation Skin exam: PRESENT: dry, intact, warm. ABSENT: cyanosis, rash Results Laboratory Results: 02/09/20 04:45 02/09/20 04:45 02/07/20 02/09/20 02/09/20 00:10 04:45 04:45 WBC 0.2 L* RBC 2.89 L Hgb 9.4 L D Hct 26.6 L MCV 92 MCH 32.5 MCHC 35.2 RDW 17.4 H Plt Count 90 L Seg Neutrophils % 7.1 L Sodium 139.3 Potassium 3.9 Chloride 107 Carbon Dioxide 24 Anion Gap 8 BUN 14 Creatinine 0.65 Est GFR ( Amer) > 60 Glucose 134 H Calcium 9.0 Blood Type O POSITIVE Antibody Screen NEGATIVE 02/06/20 21:35 Blood Blood Culture (PCR) - Final Staphylococcus Species 02/06/20 21:35 Blood Blood Culture - Final Staphylococcus Epidermidis 02/06/20 20:43 Clean Catch Midstream Urine Culture - Final Staph Coagulase Negative Urogenital An 02/07/20 01:00 Blood Blood Culture (PCR) - Final Staphylococcus Species 02/07/20 05:42 Blood Blood Culture (PCR) - Final Staphylococcus Species Impressions: Chest X-Ray 02/06/20 20:09 IMPRESSION: No evidence of active intrathoracic disease. Assessment & Plan - Diagnosis (1) Acute myeloid leukemia Qualifiers: Leukemia Active/Remission status: without remission Qualified Code(s): C92.00 - Acute myeloblastic leukemia, not having achieved remission Is this a current diagnosis for this admission?: Yes Plan: Restart midostaurin. Cont to monitor (2) Neutropenic fever Is this a current diagnosis for this admission?: Yes Plan: Cont abtx, primary team should reepeat bcx either today or tomorrow to ensure clearance (3) Pancytopenia Is this a current diagnosis for this admission?: Yes Plan: Counts stable post transfusion (4) Essential hypertension Is this a current diagnosis for this admission?: Yes Plan: Currently all stable (5) Major depression Qualifiers: Psychotic features: without psychotic features Is this a current diagnosis for this admission?: Yes Plan: Patient follow-up with the psych continues to current medications (6) Schizophrenia Qualifiers: Schizophrenia type: unspecified Qualified Code(s): F20.9 - Schizophrenia, unspecified Is this a current diagnosis for this admission?: Yes (7) Sepsis Qualifiers: Sepsis type: sepsis due to unspecified organism Severe sepsis shock status: unspecified Is this a current diagnosis for this admission?: Yes Plan: With the all staphylococcal species with the multiple resistance drugs will consult infectious disease for further evaluations while patient already have a port placement and and that line is also positive for Staphylococcus consider repeat the blood culture but will wait for the infectious disease to further input discussed with the oncology about the - Time Time Spent with patient: 15-24 minutes Level of Care: IMCU Medications reviewed and adjusted accordingly: Yes Anticipated discharge: Other Anticipated DC Timeframe: Other - Plan Summary Plan Summary: Continues to IV antibiotic with vancomycin's we will consult the infectious disease for further evaluations
--- NOTE | 2020-02-09 13:58 | Progress Note ---
Provider Note Provider Note: ID Note- I reviewed the patient's chart, including the CXR and microbiology results, and discussed the patient's case with Dr. Salas. The patient has coagulase-negative Staph (Staph epi) bacteremia in several blood cultures, including peripheral IV and from the port. She has neutropenia related to chemotherapy for AML. In the absence of another source of fever, I suspect that the port is infected. She has clinically responded to broad- spectrum antibiotics, which included vancomycin. Recommendations: 1. Remove the port. 2. Alternatively, do antibiotic lock procedure utilizing set protocol. We have used combination of minocycline and 25% ethanol. Would consider contacting [facility] for their recommendations. If port is needed for future therapy, then antibiotic lock is reasonable. If port is no longer needed, then removing the port is the easier option. 3. Continue vancomycin x 14 days from first negative blood culture. 4. Discontinue other antibiotics. Put on prophylactic antibiotics (e.g., levofloxacin) until neutropenia resolves. Call me if there are questions. Nain Lang MD Pager: [phone]
[2020-02-09] MEDS ORDERED: LIDOCAINE 1%/EPINEPHRINE INJ 20 ML VIAL INJ PRN (17:00)
[2020-02-09] MEDS: VANCOMYCIN HCL 750 MG in DEXTROSE 5%-WATER 250 ML IV SCH (19:32)
--- NOTE | 2020-02-09 21:23 | Operative Report ---
Nonrecallable Operative Report DATE OF SURGERY: 02/09/20 PREOPERATIVE DIAGNOSIS: Infected Acuña catheter, right chest wall POSTOPERATIVE DIAGNOSIS: Same as above OPERATION: Removal of Acuña catheter SURGEON: SEAN GALLAGHER ANESTHESIA: Local TISSUE REMOVED OR ALTERED: none COMPLICATIONS: None apparent ESTIMATED BLOOD LOSS: Minimal PROCEDURE: Drains/implants: None. Procedure in detail: After informed consent was was obtained from the patient, she was sat in the upright position in the hospital room. The area of the right chest was prepped and draped in a normal sterile fashion, after the occlusive dressing was removed. Sutures were removed from the catheter. The cuff was densely adherent to the subcutaneous tissues. 1% lidocaine with epinephrine was injected at the Acuña catheter insertion site. An incision was created over top of the cuff. The cuff was dissected free from the subcutaneous tissues using sharp dissection. Once the catheter was completely freed from the subcutaneous tissues, the catheter was removed from the vein. Pressure was held, and hemostasis was achieved. A dressing was placed, and the procedure was concluded. All sponge, instrument, and needle counts were correct. Condition: Stable.
[2020-02-10] MEDS: VANCOMYCIN HCL 750 MG in DEXTROSE 5%-WATER 250 ML IV SCH ×3 (01:09→18:51)
[2020-02-10] MEDS: NORMAL SALINE 1000 ML 1,000 ML IV PRN ×2 (03:55→06:43)
--- NOTE | 2020-02-10 06:16 | PDOC CONSULTATION ---
Consultation Consult Date: 02/09/20 Provider Consulted: SURGICAL SURGICALIST Consult reason:: infected Acuña catheter History of Present Illness Admission Date/PCP: 02/07/20 01:09 RONNA NAVARRO MD History of Present Illness: SASHA SHARMA is a 50 year old female admitted with neutropenic fevers. The patient has a history of leukemia, treated with chemotherapy. Multiple blood cultures have been obtained, demonstrating Staphylococcus species growing in her blood. The patient has an indwelling Acuña catheter, which is the presumed source of her infection. Currently the patient denies chest pain, shortness of breath, nausea, vomiting, headache, abdominal pain, diarrhea, constipation, dizziness, orthostasis, headache, blurry vision. She does report malaise, fatigue, low-grade fevers, chills. Past Medical History Cardiac Medical History: Reports: Hypertension Malignancy Medical History: Reports: Other - AML Past Surgical History Past Surgical History: Reports: Appendectomy, Other - BMBx Social History Smoking Status: Never Smoker Electronic Cigarette use?: No Frequency of Alcohol Use: None Hx Recreational Drug Use: No Hx Prescription Drug Abuse: No - Advance Directive Resuscitation Status: Full Code Family History Family History: Arthritis, CAD, CVA, DM, Hyperlipidemia, Hypertension, Malignancy, Thyroid Disfunction Parental Family History Reviewed: Yes Children Family History Reviewed: Yes Sibling(s) Family History Reviewed.: Yes Medication/Allergy Home Medications: Benztropine Mesylate [Cogentin 1 mg Tablet] 1 mg PO BID 04/29/14 Fluoxetine HCl [Prozac 20 mg Capsule] 20 mg PO QAM 04/29/14 Risperidone [Risperdal] 3 mg PO BID 04/29/14 Famotidine [Pepcid 20 mg Tablet] 20 mg PO BID 01/01/20 Fluconazole [Diflucan] 400 mg PO DAILY 01/01/20 Levofloxacin [Levaquin 500 mg Tablet] 500 mg PO DAILY 01/01/20 Medroxyprogesterone Acet [Provera 10 mg Tablet] 10 mg PO QAM 01/01/20 Midostaurin [Rydapt] 50 mg PO BID 01/01/20 Valacyclovir HCl [Valtrex 500 mg Tablet] 500 mg PO DAILY 01/01/20 Ondansetron HCl [Zofran 8 mg Tablet] 8 mg PO Q8HP PRN 02/07/20 Polyethylene Glycol 3350 [Miralax Powder 17 gm/Packet] 1 packet PO DAILYP PRN 02/07/20 Tramadol HCl [Ultram 50 mg Tablet] 50 mg PO Q6HP PRN 02/07/20 Allergies/Adverse Reactions: No Known Allergies Allergy (Verified 08/25/19 13:28) Review of Systems Constitutional: PRESENT: chills, fatigue, fever(s). ABSENT: anorexia Eyes: ABSENT: visual disturbances Ears: ABSENT: hearing changes Nose, Mouth, and Throat: ABSENT: sore throat Cardiovascular: ABSENT: chest pain Respiratory: ABSENT: cough Gastrointestinal: ABSENT: abdominal pain, bloating, diarrhea, hematemesis, hematochezia, melena, nausea, vomiting Genitourinary: ABSENT: difficulty urinating Musculoskeletal: ABSENT: back pain Integumentary: ABSENT: diaphoresis, erythema, pruritus, rash Neurological: ABSENT: confusion, convulsions, dizziness Psychiatric: ABSENT: anxiety, depression Endocrine: ABSENT: cold intolerance, heat intolerance Hematologic/Lymphatic: ABSENT: easy bleeding, easy bruising Physical Exam Vital Signs: Temp Pulse Resp BP Pulse Ox 99.5 F 102 H 16 120/63 99 02/09/20 15:41 02/09/20 15:41 02/09/20 15:41 02/09/20 15:41 02/09/20 15:41 Intake & Output 02/08/20 02/09/20 02/10/20 06:59 06:59 06:59 Intake Total 3891 3920 1389 Output Total 0 450 Balance 3891 3470 1389 Weight 72.1 kg 72.7 kg General appearance: PRESENT: no acute distress, cooperative. ABSENT: disheveled Head exam: PRESENT: atraumatic, normocephalic Eye exam: PRESENT: EOMI, PERRLA. ABSENT: scleral icterus Mouth exam: PRESENT: moist, neck supple Neck exam: ABSENT: meningismus, tenderness, thyromegaly, tracheal deviation Respiratory exam: PRESENT: unlabored. ABSENT: tachypnea, wheezes Cardiovascular exam: ABSENT: tachycardia Vascular exam: PRESENT: normal capillary refill GI/Abdominal exam: PRESENT: soft. ABSENT: distended, firm, guarding, rigid, tenderness Rectal exam: PRESENT: deferred Extremities exam: ABSENT: clubbing Musculoskeletal exam: ABSENT: deformity Neurological exam: PRESENT: alert, awake, oriented to person, oriented to place, oriented to time, oriented to situation, CN II-XII grossly intact Psychiatric exam: ABSENT: agitated, anxious, depressed Focused psych exam: ABSENT: delusional Skin exam: ABSENT: cyanosis, erythema, jaundice Results Laboratory Results: 02/09/20 04:45 02/09/20 04:45 02/07/20 02/09/20 02/09/20 00:10 04:45 04:45 WBC 0.2 L* RBC 2.89 L Hgb 9.4 L D Hct 26.6 L MCV 92 MCH 32.5 MCHC 35.2 RDW 17.4 H Plt Count 90 L Seg Neutrophils % 7.1 L Sodium 139.3 Potassium 3.9 Chloride 107 Carbon Dioxide 24 Anion Gap 8 BUN 14 Creatinine 0.65 Est GFR ( Amer) > 60 Glucose 134 H Calcium 9.0 Blood Type O POSITIVE Antibody Screen NEGATIVE 02/06/20 21:35 Blood Blood Culture (PCR) - Final Staphylococcus Species 02/06/20 21:35 Blood Blood Culture - Final Staphylococcus Epidermidis 02/06/20 20:43 Clean Catch Midstream Urine Culture - Final Staph Coagulase Negative Urogenital An 02/07/20 01:00 Blood Blood Culture (PCR) - Final Staphylococcus Species 02/07/20 05:42 Blood Blood Culture (PCR) - Final Staphylococcus Species Impressions: Chest X-Ray 02/06/20 20:09 IMPRESSION: No evidence of active intrathoracic disease. Assessment & Plan - Diagnosis (1) Infection of vascular catheter Qualifiers: Encounter type: initial encounter Qualified Code(s): T82.7XXA - Infection and inflammatory reaction due to other cardiac and vascular devices, implants and grafts, initial encounter Is this a current diagnosis for this admission?: Yes - Plan Summary Plan Summary: A 50-year-old female with leukemia. She has positive blood cultures, confirming an infected Acuña catheter. I will remove her catheter at the bedside today. I have discussed this with her at length. Risks/benefits discussed, informed consent obtained, and all questions answered.
--- NOTE | 2020-02-10 06:17 | Progress Note ---
Provider Note Provider Note: When the patient is ready for a Mediport (after her infection has resolved), please renotify surgery for placement. Surgery will sign off at this time. We are available to place her Mediport at any time.
[2020-02-10 07:13] LABS: ABSOLUTE LYMPHOCYTES (AUTO) 0.2 10^3/uL (0.5-4.7); ABSOLUTE NEUT (AUTO) 0.1 10^3/uL (1.7-8.2); BASOPHILS % (AUTO) 0.2 % (0-2); EOSINOPHILS % (AUTO) 0.6 % (0-6); HEMATOCRIT 27.9 % (36.0-47.0); HEMOGLOBIN 9.9 g/dL (12.0-15.5); LYMPHOCYTES % (AUTO) 64.5 % (13-45); MEAN CORPUSCULAR HEMOGLOBIN 32.6 pg (27.0-33.4); MEAN CORPUSCULAR HGB CONC 35.4 g/dL (32.0-36.0); MEAN CORPUSCULAR VOLUME 92 fl (80-97); RED BLOOD COUNT 3.03 10^6/uL (3.72-5.28); SEGMENTED NEUTROPHILS % (AUTO) 28.7 % (42-78); TOTAL CELLS COUNTED % (AUTO) 100 %
[2020-02-10 07:32] LABS: ANION GAP 8 (5-19); BLOOD UREA NITROGEN 13 mg/dL (7-20); CARBON DIOXIDE 25 mmol/L (22-30); CHLORIDE 106 mmol/L (98-107); GLUCOSE 97 mg/dL (75-110); POTASSIUM 4.6 mmol/L (3.6-5.0)
[2020-02-10 08:35] LABS: PLATELET COUNT 73 10^3/uL (150-450)
[2020-02-10 08:38] LABS: WHITE BLOOD COUNT 0.3 10^3/uL (4.0-10.5)
--- NOTE | 2020-02-10 08:39 | PDOC PROGRESS REPORT ---
Subjective Progress Note for:: 02/10/20 Subjective:: Patient had port removed, now has good access, complained of hematuria overnight Reason For Visit: FEBRILE NEUTROPENIA,CHEMOTHERAPY RELATED Physical Exam Vital Signs: Temp Pulse Resp BP Pulse Ox 98.8 F 88 18 104/67 98 02/10/20 03:19 02/10/20 03:19 02/10/20 03:19 02/10/20 03:19 02/10/20 03:19 Intake & Output 02/09/20 02/10/20 02/11/20 06:59 06:59 06:59 Intake Total 3920 2169 Output Total 450 Balance 3470 2169 Weight 72.7 kg 71.7 kg General appearance: PRESENT: no acute distress, well-developed, well-nourished Head exam: PRESENT: atraumatic, normocephalic Eye exam: PRESENT: conjunctiva pink, EOMI, PERRLA. ABSENT: scleral icterus Ear exam: PRESENT: normal external ear exam Mouth exam: PRESENT: moist, tongue midline Neck exam: ABSENT: carotid bruit, JVD, lymphadenopathy, thyromegaly Respiratory exam: PRESENT: clear to auscultation tank. ABSENT: rales, rhonchi, wheezes Cardiovascular exam: PRESENT: RRR. ABSENT: diastolic murmur, rubs, systolic murmur Pulses: PRESENT: normal dorsalis pedis pul Vascular exam: PRESENT: normal capillary refill GI/Abdominal exam: PRESENT: normal bowel sounds, soft. ABSENT: distended, guarding, mass, organolmegaly, rebound, tenderness Rectal exam: PRESENT: deferred Extremities exam: PRESENT: full ROM. ABSENT: calf tenderness, clubbing, pedal edema Neurological exam: PRESENT: alert, awake, oriented to person, oriented to place, oriented to time, oriented to situation, CN II-XII grossly intact. ABSENT: motor sensory deficit Psychiatric exam: PRESENT: appropriate affect, normal mood. ABSENT: homicidal ideation, suicidal ideation Skin exam: PRESENT: dry, intact, warm. ABSENT: cyanosis, rash Results Laboratory Results: 02/10/20 06:15 02/10/20 06:15 Sodium 138.7 Potassium 4.6 Chloride 106 Carbon Dioxide 25 Anion Gap 8 BUN 13 Creatinine 0.67 Est GFR ( Amer) > 60 Glucose 97 Calcium 9.0 02/06/20 21:35 Blood Blood Culture (PCR) - Final Staphylococcus Species 02/06/20 21:35 Blood Blood Culture - Final Staphylococcus Epidermidis 02/06/20 20:43 Clean Catch Midstream Urine Culture - Final Staph Coagulase Negative Urogenital An 02/07/20 01:00 Blood Blood Culture (PCR) - Final Staphylococcus Species 02/07/20 05:42 Blood Blood Culture (PCR) - Final Staphylococcus Species Impressions: Chest X-Ray 02/06/20 20:09 IMPRESSION: No evidence of active intrathoracic disease. Assessment & Plan - Diagnosis (1) Acute myeloid leukemia Qualifiers: Leukemia Active/Remission status: without remission Qualified Code(s): C92.00 - Acute myeloblastic leukemia, not having achieved remission Is this a current diagnosis for this admission?: Yes Plan: Counts are pending, continue with current therapy (2) Neutropenic fever Is this a current diagnosis for this admission?: Yes Plan: Continue current antibiotic plan, cultures need to be negative, so may be by Friday we could consider placing PICC line and patient will need a total of 14 days of vancomycin from last negative culture. (3) Pancytopenia Is this a current diagnosis for this admission?: Yes Plan: Awaiting counts from today - Time Time Spent with patient: 15-24 minutes
--- NOTE | 2020-02-10 10:53 | PDOC PROGRESS REPORT ---
Subjective Progress Note for:: 02/10/20 Subjective:: Patient is currently doing fair patient's port cath was removed Discussed with the infectious disease yesterday suggest the continues the vancomycin for 14 days after the negative blood culture And have episode of a small blood in the urine denied any complaints No chest pain no short of breath Reason For Visit: FEBRILE NEUTROPENIA,CHEMOTHERAPY RELATED Physical Exam Vital Signs: Temp Pulse Resp BP Pulse Ox 98.8 F 88 18 104/67 98 02/10/20 03:19 02/10/20 03:19 02/10/20 03:19 02/10/20 03:19 02/10/20 03:19 Intake & Output 02/09/20 02/10/20 02/11/20 06:59 06:59 06:59 Intake Total 3920 2169 Output Total 450 Balance 3470 2169 Weight 72.7 kg 71.7 kg General appearance: PRESENT: no acute distress, well-developed, well-nourished Head exam: PRESENT: atraumatic, normocephalic Eye exam: PRESENT: conjunctiva pink, EOMI, PERRLA. ABSENT: scleral icterus Ear exam: PRESENT: normal external ear exam Mouth exam: PRESENT: moist, tongue midline Neck exam: PRESENT: full ROM. ABSENT: carotid bruit, JVD, lymphadenopathy, thyromegaly Respiratory exam: PRESENT: clear to auscultation tank Cardiovascular exam: PRESENT: RRR. ABSENT: diastolic murmur, rubs, systolic murmur Pulses: PRESENT: normal dorsalis pedis pul, +2 pedal pulses bilateral Vascular exam: PRESENT: normal capillary refill GI/Abdominal exam: PRESENT: normal bowel sounds, soft. ABSENT: distended, guarding, mass, organolmegaly, rebound, tenderness Rectal exam: PRESENT: deferred Neurological exam: PRESENT: alert, awake, oriented to person, oriented to place, oriented to time, oriented to situation, CN II-XII grossly intact. ABSENT: motor sensory deficit Psychiatric exam: PRESENT: appropriate affect, normal mood. ABSENT: homicidal ideation, suicidal ideation Skin exam: PRESENT: dry, intact, warm. ABSENT: cyanosis, rash Results Laboratory Results: 02/10/20 06:15 02/10/20 06:15 02/10/20 02/10/20 06:15 06:15 WBC 0.3 L* RBC 3.03 L Hgb 9.9 L Hct 27.9 L MCV 92 MCH 32.6 MCHC 35.4 RDW 17.0 H Plt Count 73 L Seg Neutrophils % 28.7 L Sodium 138.7 Potassium 4.6 Chloride 106 Carbon Dioxide 25 Anion Gap 8 BUN 13 Creatinine 0.67 Est GFR ( Amer) > 60 Glucose 97 Calcium 9.0 02/07/20 05:42 Blood Blood Culture (PCR) - Final Staphylococcus Species 02/07/20 01:00 Blood Blood Culture (PCR) - Final Staphylococcus Species 02/06/20 21:35 Blood Blood Culture (PCR) - Final Staphylococcus Species 02/06/20 21:35 Blood Blood Culture - Final Staphylococcus Epidermidis 02/06/20 20:43 Clean Catch Midstream Urine Culture - Final Staph Coagulase Negative Urogenital An Impressions: Chest X-Ray 02/06/20 20:09 IMPRESSION: No evidence of active intrathoracic disease. Assessment & Plan - Diagnosis (1) Acute myeloid leukemia Qualifiers: Leukemia Active/Remission status: without remission Qualified Code(s): C 92.00 - Acute myeloblastic leukemia, not having achieved remission Is this a current diagnosis for this admission?: Yes (2) Neutropenic fever Is this a current diagnosis for this admission?: Yes Plan: Continues the IV vancomycin's for 14 days (3) Pancytopenia Is this a current diagnosis for this admission?: Yes Plan: Awaiting counts from today (4) Essential hypertension Is this a current diagnosis for this admission?: Yes Plan: Currently all stable (5) Major depression Qualifiers: Psychotic features: without psychotic features Is this a current diagnosis for this admission?: Yes Plan: Patient follow-up with the psych continues to current medications (6) Schizophrenia Qualifiers: Schizophrenia type: unspecified Qualified Code(s): F20.9 - Schizophrenia, unspecified Is this a current diagnosis for this admission?: Yes (7) Sepsis Qualifiers: Sepsis type: sepsis due to unspecified organism Severe sepsis shock status: unspecified Is this a current diagnosis for this admission?: Yes Plan: cont curr med - Time Time Spent with patient: 15-24 minutes Level of Care: IMCU Medications reviewed and adjusted accordingly: Yes Anticipated discharge: Other Anticipated DC Timeframe: Other - Plan Summary Plan Summary: cont curr med
[2020-02-10] MEDS: FLUOXETINE HCL 20 MG CAPSULE PO SCH (10:58)
[2020-02-10] MEDS: LEVOFLOXACIN 500 MG TABLET PO SCH (10:58)
[2020-02-10] MEDS: MEDROXYPROGESTERONE ACET 10 MG TABLET PO SCH (10:59)
[2020-02-10] MEDS: RISPERIDONE 1 MG TABLET PO SCH ×2 (10:59→18:55)
[2020-02-10] MEDS: FAMOTIDINE 20 MG TABLET PO SCH ×2 (10:59→18:51)
[2020-02-10] MEDS: BENZTROPINE MESYLATE 1 MG TABLET PO SCH ×2 (10:59→18:51)
[2020-02-10] MEDS: FLUCONAZOLE 100 MG TABLET PO SCH (10:59)
[2020-02-10] MEDS: VALACYCLOVIR HCL 500 MG TABLET PO SCH (11:00)
[2020-02-11] MEDS: VANCOMYCIN HCL 750 MG in DEXTROSE 5%-WATER 250 ML IV SCH ×3 (01:12→18:28)
[2020-02-11] MEDS: NORMAL SALINE 1000 ML 1,000 ML IV PRN (01:12)
[2020-02-11 05:35] LABS: APPEARANCE,URINE CLEAR; BILIRUBIN,URINE NEGATIVE (NEGATIVE); COLOR,URINE YELLOW; GLUCOSE, URINE NEGATIVE (NEGATIVE); KETONES,URINE NEGATIVE (NEGATIVE); LEUKOCYTE ESTERASE,URINE NEGATIVE (NEGATIVE); NITRITE,URINE NEGATIVE (NEGATIVE); PROTEIN,URINE NEGATIVE (NEGATIVE); URINE SPECIFIC GRAVITY 1.012; UROBILINOGEN,URINE NEGATIVE mg/dL (<2.0)
[2020-02-11 06:45] LABS: HEMATOCRIT 27.2 % (36.0-47.0); HEMOGLOBIN 9.6 g/dL (12.0-15.5); MEAN CORPUSCULAR HEMOGLOBIN 32.7 pg (27.0-33.4); MEAN CORPUSCULAR HGB CONC 35.4 g/dL (32.0-36.0); MEAN CORPUSCULAR VOLUME 92 fl (80-97); RED BLOOD COUNT 2.95 10^6/uL (3.72-5.28); RED CELL DISTRIBUTION WIDTH 16.2 % (11.5-14.0)
[2020-02-11 06:46] LABS: ANION GAP 7 (5-19); BLOOD UREA NITROGEN 17 mg/dL (7-20); CALCIUM 9.1 mg/dL (8.4-10.2); CARBON DIOXIDE 23 mmol/L (22-30); CHLORIDE 108 mmol/L (98-107); GLUCOSE 103 mg/dL (75-110); POTASSIUM 4.1 mmol/L (3.6-5.0)
[2020-02-11 07:51] LABS: ABSOLUTE LYMPHOCYTES# (MANUAL) 0.2 10^3/uL (0.5-4.7); BASOPHILS % (MANUAL) 0 % (0-2); EOSINOPHILS % (MANUAL) 0 % (0-6); LYMPHOCYTES % (MANUAL) 34 % (13-45); MONOCYTES % (MANUAL) 2 % (3-13); SEGMENTED NEUTROPHILS % (MAN) 64 % (42-78); TOTAL CELLS COUNTED 50
[2020-02-11 07:55] LABS: TOXIC GRANULATION 2+
--- NOTE | 2020-02-11 07:56 | PDOC PROGRESS REPORT ---
Subjective Progress Note for:: 02/11/20 Subjective:: pt still w sabina hematuria overnight, no other issues though Reason For Visit: FEBRILE NEUTROPENIA,CHEMOTHERAPY RELATED Physical Exam Vital Signs: Temp Pulse Resp BP Pulse Ox 98.6 F 90 18 106/55 L 95 02/11/20 03:33 02/11/20 03:33 02/11/20 03:33 02/11/20 03:33 02/11/20 03:33 Intake & Output 02/10/20 02/11/20 02/12/20 06:59 06:59 06:59 Intake Total 2169 2021 Output Total 700 Balance 2169 1321 Weight 71.7 kg 72.3 kg General appearance: PRESENT: no acute distress, well-developed, well-nourished Head exam: PRESENT: atraumatic, normocephalic Eye exam: PRESENT: conjunctiva pink, EOMI, PERRLA. ABSENT: scleral icterus Ear exam: PRESENT: normal external ear exam Mouth exam: PRESENT: moist, tongue midline Neck exam: ABSENT: carotid bruit, JVD, lymphadenopathy, thyromegaly Respiratory exam: PRESENT: clear to auscultation tank. ABSENT: rales, rhonchi, wheezes Cardiovascular exam: PRESENT: RRR. ABSENT: diastolic murmur, rubs, systolic murmur Pulses: PRESENT: normal dorsalis pedis pul Vascular exam: PRESENT: normal capillary refill GI/Abdominal exam: PRESENT: normal bowel sounds, soft. ABSENT: distended, guarding, mass, organolmegaly, rebound, tenderness Rectal exam: PRESENT: deferred Extremities exam: PRESENT: full ROM. ABSENT: calf tenderness, clubbing, pedal edema Neurological exam: PRESENT: alert, awake, oriented to person, oriented to place, oriented to time, oriented to situation, CN II-XII grossly intact. ABSENT: motor sensory deficit Psychiatric exam: PRESENT: appropriate affect, normal mood. ABSENT: homicidal ideation, suicidal ideation Skin exam: PRESENT: dry, intact, warm. ABSENT: cyanosis, rash Results Laboratory Results: 02/11/20 05:29 02/10/20 02/11/20 02/11/20 06:15 05:10 05:29 WBC 0.3 L* RBC 3.03 L Hgb 9.9 L Hct 27.9 L MCV 92 MCH 32.6 MCHC 35.4 RDW 17.0 H Plt Count 73 L Seg Neutrophils % 28.7 L Sodium 138.1 Potassium 4.1 Chloride 108 H Carbon Dioxide 23 Anion Gap 7 BUN 17 Creatinine 0.68 Est GFR ( Amer) > 60 Glucose 103 Calcium 9.1 Urine Color YELLOW Urine Appearance CLEAR Urine pH 6.0 Ur Specific [place] 1.012 Urine Protein NEGATIVE Urine Glucose (UA) NEGATIVE Urine Ketones NEGATIVE Urine Blood LARGE H Urine Nitrite NEGATIVE Ur Leukocyte Esterase NEGATIVE Urine WBC (Auto) 38 Urine RBC (Auto) >182 02/11/20 05:29 WBC RBC Hgb Hct MCV MCH MCHC RDW Plt Count Seg Neutrophils % Not Reportable Sodium Potassium Chloride Carbon Dioxide Anion Gap BUN Creatinine Est GFR ( Amer) Glucose Calcium Urine Color Urine Appearance Urine pH Ur Specific [place] Urine Protein Urine Glucose (UA) Urine Ketones Urine Blood Urine Nitrite Ur Leukocyte Esterase Urine WBC (Auto) Urine RBC (Auto) 02/07/20 05:42 Blood Blood Culture (PCR) - Final Staphylococcus Species 02/07/20 05:42 Blood Blood Culture - Final Staphylococcus Epidermidis 02/07/20 01:00 Blood Blood Culture (PCR) - Final Staphylococcus Species 02/07/20 01:00 Blood Blood Culture - Final Staphylococcus Epidermidis Impressions: Chest X-Ray 02/06/20 20:09 IMPRESSION: No evidence of active intrathoracic disease. Assessment & Plan - Diagnosis (1) Acute myeloid leukemia Qualifiers: Leukemia Active/Remission status: without remission Qualified Code(s): C92.00 - Acute myeloblastic leukemia, not having achieved remission Is this a current diagnosis for this admission?: Yes Plan: Restarted oral chemo, awaiting count recovery (2) Neutropenic fever Is this a current diagnosis for this admission?: Yes Plan: awaiting count recovery, PICC placement on friday (3) Pancytopenia Is this a current diagnosis for this admission?: Yes Plan: improving on last check, cont to monitor (4) Hematuria Qualifiers: Hematuria type: unspecified type Qualified Code(s): R31.9 - Hematuria, unspecified Is this a current diagnosis for this admission?: Yes Plan: Unknown cause, will monitor, will discuss w Dr. Salas - Time Time Spent with patient: 15-24 minutes
[2020-02-11 07:57] LABS: ANISOCYTOSIS SLIGHT; OVALOCYTES SLIGHT; POIKILOCYTOSIS SLIGHT; TEAR DROP CELLS SLIGHT
[2020-02-11 08:00] LABS: PLATELET COUNT 53 10^3/uL (150-450)
[2020-02-11 08:05] LABS: PLATELET COMMENT DECREASED; WHITE BLOOD COUNT 0.7 10^3/uL (4.0-10.5)
--- NOTE | 2020-02-11 08:27 | PDOC PROGRESS REPORT ---
Subjective Progress Note for:: 02/11/20 Subjective:: Patient is currently doing well Patient blood culture come back negative yesterday currently on IV vancomycin as per ID consult Patient have a still some low-grade fever 99 yesterday Patient still have some blood in the urine but patient's denied any complain No abdominal pain no urinary urgency frequency no chest pain no short of breath Reason For Visit: FEBRILE NEUTROPENIA,CHEMOTHERAPY RELATED Physical Exam Vital Signs: Temp Pulse Resp BP Pulse Ox 98.6 F 90 18 106/55 L 95 02/11/20 03:33 02/11/20 03:33 02/11/20 03:33 02/11/20 03:33 02/11/20 03:33 Intake & Output 02/10/20 02/11/20 02/12/20 06:59 06:59 06:59 Intake Total 2169 2021 Output Total 700 Balance 2169 1321 Weight 71.7 kg 72.3 kg General appearance: PRESENT: no acute distress, well-developed, well-nourished Head exam: PRESENT: atraumatic, normocephalic Eye exam: PRESENT: conjunctiva pink, EOMI, PERRLA. ABSENT: scleral icterus Ear exam: PRESENT: normal external ear exam Mouth exam: PRESENT: moist, tongue midline Neck exam: PRESENT: full ROM. ABSENT: carotid bruit, JVD, lymphadenopathy, thyromegaly Respiratory exam: PRESENT: clear to auscultation tank Cardiovascular exam: PRESENT: RRR. ABSENT: diastolic murmur, rubs, systolic murmur Pulses: PRESENT: normal dorsalis pedis pul, +2 pedal pulses bilateral Vascular exam: PRESENT: normal capillary refill GI/Abdominal exam: PRESENT: normal bowel sounds, soft. ABSENT: distended, guarding, mass, organolmegaly, rebound, tenderness Rectal exam: PRESENT: deferred Neurological exam: PRESENT: alert, awake, oriented to person, oriented to place, oriented to time, oriented to situation, CN II-XII grossly intact. ABSENT: motor sensory deficit Psychiatric exam: PRESENT: appropriate affect, normal mood. ABSENT: homicidal ideation, suicidal ideation Skin exam: PRESENT: dry, intact, warm. ABSENT: cyanosis, rash Results Laboratory Results: 02/11/20 05:29 02/11/20 05:29 02/10/20 02/11/20 02/11/20 06:15 05:10 05:29 WBC 0.3 L* RBC 3.03 L Hgb 9.9 L Hct 27.9 L MCV 92 MCH 32.6 MCHC 35.4 RDW 17.0 H Plt Count 73 L Seg Neutrophils % 28.7 L Sodium 138.1 Potassium 4.1 Chloride 108 H Carbon Dioxide 23 Anion Gap 7 BUN 17 Creatinine 0.68 Est GFR ( Amer) > 60 Glucose 103 Calcium 9.1 Urine Color YELLOW Urine Appearance CLEAR Urine pH 6.0 Ur Specific [place] 1.012 Urine Protein NEGATIVE Urine Glucose (UA) NEGATIVE Urine Ketones NEGATIVE Urine Blood LARGE H Urine Nitrite NEGATIVE Ur Leukocyte Esterase NEGATIVE Urine WBC (Auto) 38 Urine RBC (Auto) >182 02/11/20 05:29 WBC 0.7 L* RBC 2.95 L Hgb 9.6 L Hct 27.2 L MCV 92 MCH 32.7 MCHC 35.4 RDW 16.2 H Plt Count 53 L Seg Neutrophils % Not Reportable Sodium Potassium Chloride Carbon Dioxide Anion Gap BUN Creatinine Est GFR ( Amer) Glucose Calcium Urine Color Urine Appearance Urine pH Ur Specific [place] Urine Protein Urine Glucose (UA) Urine Ketones Urine Blood Urine Nitrite Ur Leukocyte Esterase Urine WBC (Auto) Urine RBC (Auto) 02/07/20 05:42 Blood Blood Culture (PCR) - Final Staphylococcus Species 02/07/20 05:42 Blood Blood Culture - Final Staphylococcus Epidermidis 02/07/20 01:00 Blood Blood Culture (PCR) - Final Staphylococcus Species 02/07/20 01:00 Blood Blood Culture - Final Staphylococcus Epidermidis Impressions: Chest X-Ray 02/06/20 20:09 IMPRESSION: No evidence of active intrathoracic disease. Assessment & Plan - Diagnosis (1) Acute myeloid leukemia Qualifiers: Leukemia Active/Remission status: without remission Qualified Code(s): C92.00 - Acute myeloblastic leukemia, not having achieved remission Is this a current diagnosis for this admission?: Yes Plan: Restarted oral chemo, awaiting count recovery (2) Neutropenic fever Is this a current diagnosis for this admission?: Yes Plan: Currently on IV vancomycin's for total 14 days after the negative culture (3) Pancytopenia Is this a current diagnosis for this admission?: Yes Plan: improving on last check, cont to monitor (4) Essential hypertension Is this a current diagnosis for this admission?: Yes Plan: Currently all stable (5) Major depression Qualifiers: Psychotic features: without psychotic features Is this a current diagnosis for this admission?: Yes Plan: Patient follow-up with the psych continues to current medications (6) Schizophrenia Qualifiers: Schizophrenia type: unspecified Qualified Code(s): F20.9 - Schizophrenia, unspecified Is this a current diagnosis for this admission?: Yes (7) Sepsis Qualifiers: Sepsis type: sepsis due to unspecified organism Severe sepsis shock status: unspecified Is this a current diagnosis for this admission?: Yes Plan: Continues IV vancomycin for 14 days after the negative culture (8) Hematuria Qualifiers: Hematuria type: unspecified type Qualified Code(s): R31.9 - Hematuria, unspecified Is this a current diagnosis for this admission?: Yes Plan: Currently all stable we will continue to monitor the patient's platelet count - Time Time Spent with patient: 15-24 minutes Level of Care: TELE Medications reviewed and adjusted accordingly: Yes Anticipated discharge: Home, Home with Homehealth Anticipated DC Timeframe: Other - Plan Summary Plan Summary: Continues to current medications we will asked the physical therapy evaluations
[2020-02-11] MEDS: VALACYCLOVIR HCL 500 MG TABLET PO SCH (10:52)
[2020-02-11] MEDS: RISPERIDONE 1 MG TABLET PO SCH ×2 (10:53→18:27)
[2020-02-11] MEDS: FLUCONAZOLE 100 MG TABLET PO SCH (10:53)
[2020-02-11] MEDS: LEVOFLOXACIN 500 MG TABLET PO SCH (10:54)
[2020-02-11] MEDS: MEDROXYPROGESTERONE ACET 10 MG TABLET PO SCH (10:54)
[2020-02-11] MEDS: FLUOXETINE HCL 20 MG CAPSULE PO SCH (10:54)
[2020-02-11] MEDS: BENZTROPINE MESYLATE 1 MG TABLET PO SCH ×2 (10:54→18:28)
[2020-02-11] MEDS: FAMOTIDINE 20 MG TABLET PO SCH ×2 (10:55→18:28)
[2020-02-11 11:10] LABS: VANCOMYCIN,TROUGH 16.9 ug/mL (5.0-20.0)
[2020-02-12] MEDS: VANCOMYCIN HCL 750 MG in DEXTROSE 5%-WATER 250 ML IV SCH ×3 (01:09→17:32)
[2020-02-12 06:09] LABS: HEMATOCRIT 26.4 % (36.0-47.0); HEMOGLOBIN 9.2 g/dL (12.0-15.5); MEAN CORPUSCULAR HEMOGLOBIN 32.2 pg (27.0-33.4); MEAN CORPUSCULAR VOLUME 92 fl (80-97); RED BLOOD COUNT 2.87 10^6/uL (3.72-5.28); RED CELL DISTRIBUTION WIDTH 16.4 % (11.5-14.0)
[2020-02-12 06:22] LABS: ANION GAP 7 (5-19); BLOOD UREA NITROGEN 15 mg/dL (7-20); CALCIUM 9.1 mg/dL (8.4-10.2); CARBON DIOXIDE 24 mmol/L (22-30); CHLORIDE 108 mmol/L (98-107); GLUCOSE 97 mg/dL (75-110); POTASSIUM 4.4 mmol/L (3.6-5.0)
[2020-02-12 07:12] LABS: PLATELET COUNT 39 10^3/uL (150-450); WHITE BLOOD COUNT 1.7 10^3/uL (4.0-10.5)
[2020-02-12 07:21] LABS: ABSOLUTE LYMPHOCYTES# (MANUAL) 0.3 10^3/uL (0.5-4.7); ABSOLUTE MONOCYTES # (MANUAL) 0.1 10^3/uL (0.1-1.4); BAND NEUTROPHILS % (MANUAL) 4 % (3-5); BASOPHILS % (MANUAL) 0 % (0-2); EOSINOPHILS % (MANUAL) 0 % (0-6); LYMPHOCYTES % (MANUAL) 20 % (13-45); MONOCYTES % (MANUAL) 6 % (3-13); SEGMENTED NEUTROPHILS % (MAN) 70 % (42-78); TOTAL CELLS COUNTED 50
[2020-02-12 07:22] LABS: ANISOCYTOSIS 1+; OVALOCYTES SLIGHT; PLATELET COMMENT DECREASED; TEAR DROP CELLS SLIGHT; TOXIC GRANULATION 1+
--- NOTE | 2020-02-12 10:40 | PDOC PROGRESS REPORT ---
Subjective Progress Note for:: 02/12/20 Subjective:: Patient is feeling better Patient is denied any chest pain no short of breath Patient subsequent culture is negative Patient's denied any blood in the urine No blood in the stools Discussed with the nursing staff and patient yesterday was concerned about the blood in the stool but patient's normal menstrual. Reason For Visit: FEBRILE NEUTROPENIA,CHEMOTHERAPY RELATED Physical Exam Vital Signs: Temp Pulse Resp BP Pulse Ox 98.9 F 82 18 91/53 L 97 02/12/20 08:00 02/12/20 08:00 02/12/20 08:00 02/12/20 08:00 02/12/20 08:00 Intake & Output 02/11/20 02/12/20 02/13/20 06:59 06:59 06:59 Intake Total 2020 1486 Output Total 700 2800 Balance 1321 -1314 Weight 72.3 kg 72.4 kg General appearance: PRESENT: no acute distress, well-developed, well-nourished Head exam: PRESENT: atraumatic, normocephalic Eye exam: PRESENT: conjunctiva pink, EOMI, PERRLA. ABSENT: scleral icterus Ear exam: PRESENT: normal external ear exam Mouth exam: PRESENT: moist, tongue midline Neck exam: PRESENT: full ROM. ABSENT: carotid bruit, JVD, lymphadenopathy, thyromegaly Respiratory exam: PRESENT: clear to auscultation tank Cardiovascular exam: PRESENT: RRR. ABSENT: diastolic murmur, rubs, systolic murmur Pulses: PRESENT: normal dorsalis pedis pul, +2 pedal pulses bilateral Vascular exam: PRESENT: normal capillary refill GI/Abdominal exam: PRESENT: normal bowel sounds, soft. ABSENT: distended, guarding, mass, organolmegaly, rebound, tenderness Rectal exam: PRESENT: deferred Neurological exam: PRESENT: alert, awake, oriented to person, oriented to place, oriented to time, oriented to situation, CN II-XII grossly intact. ABSENT: motor sensory deficit Psychiatric exam: PRESENT: appropriate affect, normal mood. ABSENT: homicidal ideation, suicidal ideation Skin exam: PRESENT: dry, intact, warm. ABSENT: cyanosis, rash Results Laboratory Results: 02/12/20 05:14 02/12/20 05:14 02/12/20 02/12/20 05:14 05:14 WBC 1.7 L RBC 2.87 L Hgb 9.2 L Hct 26.4 L MCV 92 MCH 32.2 MCHC 35.0 RDW 16.4 H Plt Count 39 L Seg Neutrophils % Not Reportable Sodium 138.7 Potassium 4.4 Chloride 108 H Carbon Dioxide 24 Anion Gap 7 BUN 15 Creatinine 0.67 Est GFR ( Amer) > 60 Glucose 97 Calcium 9.1 Impressions: Chest X-Ray 02/06/20 20:09 IMPRESSION: No evidence of active intrathoracic disease. Assessment & Plan - Diagnosis (1) Acute myeloid leukemia Qualifiers: Leukemia Active/Remission status: without remission Qualified Code(s): C92.00 - Acute myeloblastic leukemia, not having achieved remission Is this a current diagnosis for this admission?: Yes (2) Neutropenic fever Is this a current diagnosis for this admission?: Yes (3) Pancytopenia Is this a current diagnosis for this admission?: Yes (4) Essential hypertension Is this a current diagnosis for this admission?: Yes (5) Major depression Qualifiers: Psychotic features: without psychotic features Is this a current diagnosis for this admission?: Yes (6) Schizophrenia Qualifiers: Schizophrenia type: unspecified Qualified Code(s): F20.9 - Schizophrenia, unspecified Is this a current diagnosis for this admission?: Yes (7) Sepsis Qualifiers: Sepsis type: sepsis due to unspecified organism Severe sepsis shock status: unspecified Is this a current diagnosis for this admission?: Yes (8) Hematuria Qualifiers: Hematuria type: unspecified type Qualified Code(s): R31.9 - Hematuria, unspecified Is this a current diagnosis for this admission?: Yes - Time Time Spent with patient: 15-24 minutes Level of Care: IMCU Medications reviewed and adjusted accordingly: Yes Anticipated discharge: Home Anticipated DC Timeframe: Other - Plan Summary Plan Summary: Continues to IV vancomycin
[2020-02-12] MEDS: NORMAL SALINE 1000 ML 1,000 ML IV PRN (11:42)
[2020-02-12] MEDS: RISPERIDONE 1 MG TABLET PO SCH ×2 (11:43→17:32)
[2020-02-12] MEDS: FLUCONAZOLE 100 MG TABLET PO SCH (11:43)
[2020-02-12] MEDS: VALACYCLOVIR HCL 500 MG TABLET PO SCH (11:44)
[2020-02-12] MEDS: MEDROXYPROGESTERONE ACET 10 MG TABLET PO SCH (11:44)
[2020-02-12] MEDS: FAMOTIDINE 20 MG TABLET PO SCH ×2 (11:44→17:32)
[2020-02-12] MEDS: LEVOFLOXACIN 500 MG TABLET PO SCH (11:44)
[2020-02-12] MEDS: FLUOXETINE HCL 20 MG CAPSULE PO SCH (11:44)
[2020-02-12] MEDS: BENZTROPINE MESYLATE 1 MG TABLET PO SCH ×2 (11:44→17:32)
--- NOTE | 2020-02-12 12:55 | PDOC PROGRESS REPORT ---
Subjective Progress Note for:: 02/12/20 Subjective:: Patient doing okay today, not having any hematuria, apparently was having menstrual cycle. This is the cause of the blood in the urine as well as the complaint of blood in the stool. Reason For Visit: FEBRILE NEUTROPENIA,CHEMOTHERAPY RELATED Physical Exam Vital Signs: Temp Pulse Resp BP Pulse Ox 98.8 F 103 H 19 121/66 97 02/12/20 10:49 02/12/20 10:49 02/12/20 10:49 02/12/20 10:49 02/12/20 10:49 Intake & Output 02/11/20 02/12/20 02/13/20 06:59 06:59 06:59 Intake Total 2020 2486 Output Total 700 2800 Balance 1321 -314 Weight 72.3 kg 72.4 kg General appearance: PRESENT: no acute distress, well-developed, well-nourished Head exam: PRESENT: atraumatic, normocephalic Eye exam: PRESENT: conjunctiva pink, EOMI, PERRLA. ABSENT: scleral icterus Ear exam: PRESENT: normal external ear exam Mouth exam: PRESENT: moist, tongue midline Neck exam: ABSENT: carotid bruit, JVD, lymphadenopathy, thyromegaly Respiratory exam: PRESENT: clear to auscultation tank. ABSENT: rales, rhonchi, wheezes Cardiovascular exam: PRESENT: RRR. ABSENT: diastolic murmur, rubs, systolic murmur Pulses: PRESENT: normal dorsalis pedis pul Vascular exam: PRESENT: normal capillary refill GI/Abdominal exam: PRESENT: normal bowel sounds, soft. ABSENT: distended, guarding, mass, organolmegaly, rebound, tenderness Rectal exam: PRESENT: deferred Extremities exam: PRESENT: full ROM. ABSENT: calf tenderness, clubbing, pedal edema Neurological exam: PRESENT: alert, awake, oriented to person, oriented to place, oriented to time, oriented to situation, CN II-XII grossly intact. ABSENT: motor sensory deficit Psychiatric exam: PRESENT: appropriate affect, normal mood. ABSENT: homicidal ideation, suicidal ideation Skin exam: PRESENT: dry, intact, warm. ABSENT: cyanosis, rash Results Laboratory Results: 02/12/20 05:14 02/12/20 05:14 02/12/20 02/12/20 05:14 05:14 WBC 1.7 L RBC 2.87 L Hgb 9.2 L Hct 26.4 L MCV 92 MCH 32.2 MCHC 35.0 RDW 16.4 H Plt Count 39 L Seg Neutrophils % Not Reportable Sodium 138.7 Potassium 4.4 Chloride 108 H Carbon Dioxide 24 Anion Gap 7 BUN 15 Creatinine 0.67 Est GFR ( Amer) > 60 Glucose 97 Calcium 9.1 Impressions: Chest X-Ray 02/06/20 20:09 IMPRESSION: No evidence of active intrathoracic disease. Assessment & Plan - Diagnosis (1) Acute myeloid leukemia Qualifiers: Leukemia Active/Remission status: without remission Qualified Code(s): C92.00 - Acute myeloblastic leukemia, not having achieved remission Is this a current diagnosis for this admission?: Yes Plan: Counts are recovering, ANC is now greater than 1, I will place orders for PICC line placement, discontinued neutropenic precaution. (2) Neutropenic fever Is this a current diagnosis for this admission?: Yes Plan: Resolved now, continue with current vancomycin, she will need 10 days of vancomycin on discharge. (3) Pancytopenia Is this a current diagnosis for this admission?: Yes Plan: Platelet count down to 39, we will recheck tomorrow and if platelet count as expected remains under 50, I will need to give her 1 unit of platelets prior to PICC line placement. (4) Hematuria Qualifiers: Hematuria type: unspecified type Qualified Code(s): R31.9 - Hematuria, unspecified Is this a current diagnosis for this admission?: Yes Plan: Resolving, secondary to menses - Time Time Spent with patient: 35 or more minutes
[2020-02-13] MEDS: VANCOMYCIN HCL 750 MG in DEXTROSE 5%-WATER 250 ML IV SCH ×3 (01:37→17:29)
[2020-02-13 05:57] LABS: HEMATOCRIT 27.4 % (36.0-47.0); HEMOGLOBIN 9.7 g/dL (12.0-15.5); MEAN CORPUSCULAR HEMOGLOBIN 32.6 pg (27.0-33.4); MEAN CORPUSCULAR HGB CONC 35.3 g/dL (32.0-36.0); MEAN CORPUSCULAR VOLUME 92 fl (80-97); RED BLOOD COUNT 2.98 10^6/uL (3.72-5.28); RED CELL DISTRIBUTION WIDTH 16.5 % (11.5-14.0)
[2020-02-13 06:18] LABS: BLOOD UREA NITROGEN 12 mg/dL (7-20); CALCIUM 9.1 mg/dL (8.4-10.2); CARBON DIOXIDE 22 mmol/L (22-30); CHLORIDE 108 mmol/L (98-107); GLUCOSE 98 mg/dL (75-110); POTASSIUM 4.1 mmol/L (3.6-5.0)
[2020-02-13 06:19] LABS: ANION GAP 9 (5-19)
[2020-02-13 06:41] LABS: PLATELET COUNT 33 10^3/uL (150-450)
[2020-02-13 06:44] LABS: ABSOLUTE LYMPHOCYTES# (MANUAL) 0.5 10^3/uL (0.5-4.7); ABSOLUTE MONOCYTES # (MANUAL) 0.3 10^3/uL (0.1-1.4); BASOPHILS % (MANUAL) 0 % (0-2); EOSINOPHILS % (MANUAL) 0 % (0-6); LYMPHOCYTES % (MANUAL) 15 % (13-45); MONOCYTES % (MANUAL) 9 % (3-13); SEGMENTED NEUTROPHILS % (MAN) 76 % (42-78); TOTAL CELLS COUNTED 100
[2020-02-13 06:45] LABS: ANISOCYTOSIS 1+; OVALOCYTES SLIGHT; PLATELET COMMENT DECREASED
[2020-02-13] MEDS ORDERED: DIPHENHYDRAMINE HCL 25 MG CAPSULE PO PRN (07:08)
[2020-02-13] MEDS ORDERED: ACETAMINOPHEN 325 MG TABLET PO PRN (07:08)
[2020-02-13] MEDS ORDERED: DIPHENHYDRAMINE HCL 25 MG CAPSULE PO ONE (07:15)
[2020-02-13] MEDS ORDERED: ACETAMINOPHEN 325 MG TABLET PO ONE (07:15)
[2020-02-13] MEDS: NORMAL SALINE 1000 ML 1,000 ML IV PRN ×2 (07:59→22:18)
[2020-02-13] MEDS: MEDROXYPROGESTERONE ACET 10 MG TABLET PO SCH (08:22)
[2020-02-13] MEDS: FLUOXETINE HCL 20 MG CAPSULE PO SCH (08:22)
--- NOTE | 2020-02-13 10:00 | PDOC PROGRESS REPORT ---
Subjective Progress Note for:: 02/13/20 Subjective:: Patient is feeling better Patient is denied any chest pain no short of breath Patient subsequent culture is negative Patient's denied any blood in the urine No blood in the stools Discussed with the nursing staff and patient yesterday was concerned about the blood in the stool but patient's normal menstrual. Reason For Visit: FEBRILE NEUTROPENIA,CHEMOTHERAPY RELATED Physical Exam Vital Signs: Temp Pulse Resp BP Pulse Ox 99.2 F 79 18 106/60 98 02/13/20 08:25 02/13/20 08:25 02/13/20 08:25 02/13/20 08:25 02/13/20 08:25 Intake & Output 02/12/20 02/13/20 02/14/20 06:59 06:59 06:59 Intake Total 2486 1620 1000 Output Total 2800 Balance -314 1620 1000 Weight 72.4 kg 72.4 kg General appearance: PRESENT: no acute distress, well-developed, well-nourished Head exam: PRESENT: atraumatic, normocephalic Eye exam: PRESENT: conjunctiva pink, EOMI, PERRLA. ABSENT: scleral icterus Ear exam: PRESENT: normal external ear exam Mouth exam: PRESENT: moist, tongue midline Neck exam: PRESENT: full ROM. ABSENT: carotid bruit, JVD, lymphadenopathy, thyromegaly Respiratory exam: PRESENT: clear to auscultation tank Cardiovascular exam: PRESENT: RRR. ABSENT: diastolic murmur, rubs, systolic murmur Pulses: PRESENT: normal dorsalis pedis pul, +2 pedal pulses bilateral Vascular exam: PRESENT: normal capillary refill GI/Abdominal exam: PRESENT: normal bowel sounds, soft. ABSENT: distended, guarding, mass, organolmegaly, rebound, tenderness Rectal exam: PRESENT: deferred Neurological exam: PRESENT: alert, awake, oriented to person, oriented to place, oriented to time, oriented to situation, CN II-XII grossly intact. ABSENT: motor sensory deficit Psychiatric exam: PRESENT: appropriate affect, normal mood. ABSENT: homicidal ideation, suicidal ideation Skin exam: PRESENT: dry, intact, warm. ABSENT: cyanosis, rash Results Laboratory Results: 02/13/20 05:30 02/13/20 05:30 02/13/20 02/13/20 02/13/20 05:30 05:30 08:00 WBC 3.0 L RBC 2.98 L Hgb 9.7 L Hct 27.4 L MCV 92 MCH 32.6 MCHC 35.3 RDW 16.5 H Plt Count 33 L Seg Neutrophils % Not Reportable Sodium 139.3 Potassium 4.1 Chloride 108 H Carbon Dioxide 22 Anion Gap 9 BUN 12 Creatinine 0.61 Est GFR ( Amer) > 60 Glucose 98 Calcium 9.1 Blood Type O POSITIVE 02/11/20 05:10 Clean Catch Midstream Urine Culture - Final NO GROWTH 2 DAYS Impressions: Chest X-Ray 02/06/20 20:09 IMPRESSION: No evidence of active intrathoracic disease. Assessment & Plan - Diagnosis (1) Acute myeloid leukemia Qualifiers: Leukemia Active/Remission status: without remission Qualified Code(s): C92.00 - Acute myeloblastic leukemia, not having achieved remission Is this a current diagnosis for this admission?: Yes (2) Neutropenic fever Is this a current diagnosis for this admission?: Yes (3) Pancytopenia Is this a current diagnosis for this admission?: Yes (4) Essential hypertension Is this a current diagnosis for this admission?: Yes (5) Major depression Qualifiers: Psychotic features: without psychotic features Is this a current diagnosis for this admission?: Yes (6) Schizophrenia Qualifiers: Schizophrenia type: unspecified Qualified Code(s): F20.9 - Schizophrenia, unspecified Is this a current diagnosis for this admission?: Yes (7) Sepsis Qualifiers: Sepsis type: sepsis due to unspecified organism Severe sepsis shock status: unspecified Is this a current diagnosis for this admission?: Yes (8) Hematuria Qualifiers: Hematuria type: unspecified type Qualified Code(s): R31.9 - Hematuria, unspecified Is this a current diagnosis for this admission?: Yes - Time Time Spent with patient: 15-24 minutes Level of Care: IMCU Medications reviewed and adjusted accordingly: Yes Anticipated discharge: Other Anticipated DC Timeframe: Other - Plan Summary Plan Summary: Continues to current medications
[2020-02-13] MEDS: FLUCONAZOLE 100 MG TABLET PO SCH (10:05)
[2020-02-13] MEDS: BENZTROPINE MESYLATE 1 MG TABLET PO SCH ×2 (10:05→17:30)
[2020-02-13] MEDS: LEVOFLOXACIN 500 MG TABLET PO SCH (10:06)
[2020-02-13] MEDS: FAMOTIDINE 20 MG TABLET PO SCH ×2 (10:06→17:30)
[2020-02-13] MEDS: RISPERIDONE 1 MG TABLET PO SCH ×2 (10:07→17:30)
[2020-02-13] MEDS: VALACYCLOVIR HCL 500 MG TABLET PO SCH (10:08)
[2020-02-14] MEDS: VANCOMYCIN HCL 750 MG in DEXTROSE 5%-WATER 250 ML IV SCH ×3 (01:00→17:34)
[2020-02-14 05:27] LABS: ANION GAP 8 (5-19); BLOOD UREA NITROGEN 10 mg/dL (7-20); CALCIUM 9.1 mg/dL (8.4-10.2); CARBON DIOXIDE 24 mmol/L (22-30); CHLORIDE 108 mmol/L (98-107); GLUCOSE 105 mg/dL (75-110); POTASSIUM 3.8 mmol/L (3.6-5.0)
[2020-02-14 06:16] LABS: HEMATOCRIT 24.7 % (36.0-47.0); HEMOGLOBIN 8.7 g/dL (12.0-15.5); MEAN CORPUSCULAR HEMOGLOBIN 32.5 pg (27.0-33.4); MEAN CORPUSCULAR HGB CONC 35.1 g/dL (32.0-36.0); MEAN CORPUSCULAR VOLUME 93 fl (80-97); RED BLOOD COUNT 2.67 10^6/uL (3.72-5.28); RED CELL DISTRIBUTION WIDTH 16.3 % (11.5-14.0); WHITE BLOOD COUNT 4.6 10^3/uL (4.0-10.5)
[2020-02-14 06:36] LABS: PLATELET COUNT 81 10^3/uL (150-450)
--- NOTE | 2020-02-14 07:53 | PDOC PROGRESS REPORT ---
Subjective Progress Note for:: 02/14/20 Subjective:: No acute events overnight, plan for PICC line placement today, platelets given yesterday and repeat count is appropriate for procedure Reason For Visit: FEBRILE NEUTROPENIA,CHEMOTHERAPY RELATED Physical Exam Vital Signs: Temp Pulse Resp BP Pulse Ox 98.6 F 84 20 115/60 100 02/14/20 03:48 02/14/20 03:48 02/14/20 03:48 02/14/20 03:48 02/14/20 03:48 Intake & Output 02/13/20 02/14/20 02/15/20 06:59 06:59 06:59 Intake Total 1620 3643 Output Total 800 Balance 1620 2843 Weight 72.4 kg 73.8 kg General appearance: PRESENT: no acute distress, well-developed, well-nourished Head exam: PRESENT: atraumatic, normocephalic Eye exam: PRESENT: conjunctiva pink, EOMI, PERRLA. ABSENT: scleral icterus Ear exam: PRESENT: normal external ear exam Mouth exam: PRESENT: moist, tongue midline Neck exam: ABSENT: carotid bruit, JVD, lymphadenopathy, thyromegaly Respiratory exam: PRESENT: clear to auscultation tank. ABSENT: rales, rhonchi, wheezes Cardiovascular exam: PRESENT: RRR. ABSENT: diastolic murmur, rubs, systolic murmur Pulses: PRESENT: normal dorsalis pedis pul Vascular exam: PRESENT: normal capillary refill GI/Abdominal exam: PRESENT: normal bowel sounds, soft. ABSENT: distended, guarding, mass, organolmegaly, rebound, tenderness Rectal exam: PRESENT: deferred Extremities exam: PRESENT: full ROM. ABSENT: calf tenderness, clubbing, pedal edema Neurological exam: PRESENT: alert, awake, oriented to person, oriented to place, oriented to time, oriented to situation, CN II-XII grossly intact. ABSENT: motor sensory deficit Psychiatric exam: PRESENT: appropriate affect, normal mood. ABSENT: homicidal ideation, suicidal ideation Skin exam: PRESENT: dry, intact, warm. ABSENT: cyanosis, rash Results Laboratory Results: 02/14/20 04:27 02/14/20 04:27 02/13/20 02/14/20 02/14/20 08:00 04:27 04:27 WBC 4.6 RBC 2.67 L Hgb 8.7 L Hct 24.7 L MCV 93 MCH 32.5 MCHC 35.1 RDW 16.3 H Plt Count 81 L D Sodium 140.2 Potassium 3.8 Chloride 108 H Carbon Dioxide 24 Anion Gap 8 BUN 10 Creatinine 0.67 Est GFR ( Amer) > 60 Glucose 105 Calcium 9.1 Blood Type O POSITIVE 02/11/20 05:10 Clean Catch Midstream Urine Culture - Final NO GROWTH 2 DAYS Impressions: Chest X-Ray 02/06/20 20:09 IMPRESSION: No evidence of active intrathoracic disease. Assessment & Plan - Diagnosis (1) Acute myeloid leukemia Qualifiers: Leukemia Active/Remission status: without remission Qualified Code(s): C92.00 - Acute myeloblastic leukemia, not having achieved remission Is this a current diagnosis for this admission?: Yes Plan: Overall stable, she will need [facility] marrow [facility] about 4 weeks. (2) Neutropenic fever Is this a current diagnosis for this admission?: Yes Plan: Resolved, patient will require 9 to 10 days of IV vancomycin (3) Pancytopenia Is this a current diagnosis for this admission?: Yes Plan: Resolving, will need to follow-up - Time Time Spent with patient: 25-34 minutes Anticipated discharge: Home with Homehealth Anticipated DC Timeframe: within 24 hours Disposition: Once patient is PICC line placed and home health can be set up, she could potentially discharge as long as her counts are stable - Inpatient Certification Based on my medical assessment, after consideration of the patient's comorbidities, presenting symptoms, or acuity I expect that the services needed warrant INPATIENT care.: Yes I certify that my determination is in accordance with my understanding of Medicare's requirements for reasonable and necessary INPATIENT services [42 CFR 412.3e].: Yes Medical Necessity: Need for IV Antibiotics, Need for Surgery, Risk of Complication if Not Cared For in Hospital
[2020-02-14] MEDS: MEDROXYPROGESTERONE ACET 10 MG TABLET PO SCH (08:17)
[2020-02-14] MEDS: FLUOXETINE HCL 20 MG CAPSULE PO SCH (08:17)
--- NOTE | 2020-02-14 09:36 | RADIOLOGY REPORT (SQ) ---
EXAM DESCRIPTION: PICC INSERTION IMAGES COMPLETED DATE/TIME: 02/14/2020 9:10 am REASON FOR STUDY: Medication need for IV antibiotics COMPARISON: None. FLUOROSCOPY TIME: 20 seconds 2 images saved to PACS. TECHNIQUE: Fluoroscopic and ultrasound guided PICC placement. LIMITATIONS: None. PROCEDURE: After written consent and assessment were obtained, the patient was brought into the fluo roscopy room and placed supine on the table. Ultrasound evaluation of potential access sites were per formed. After successfully identifying a patent left brachial vein, the left arm was prepped and drap ed in a sterile fashion along with the ultrasound probe. The entry site was anesthetized with 1% lido lisbeth. A 21 gauge 7 cm needle was advanced through the skin and into the brachial vein under live ult rasound guidance. An ultrasound image was saved to PACS confirming access site. A .018 guide wire w as then inserted through the needle and into the venous system. The needle was then removed and an 11 blade scalpel was used to make a 1cm skin incision. A 5 fr peel-away sheath was advanced over the w jazlyn and into the venous system. A measurement was then made using the existing wire and live fluorosc opic guidance. The wire was then removed and trimmed. The PICC was advanced through the peel-away she ath and into the venous system. The peel-away sheath was removed and the catheter was adhered to the patients arm with a stat lock. The catheter was then aspirated and flushed and a sterile bandage was placed over the access site. A fluoroscopic spot image was saved to PACS confirming the catheter tip within the superior vena cava. IMPRESSION: SUCCESSFUL PLACEMENT OF A 5 FR DUAL LUMEN 40 CM PICC IN THE LEFT BRACHIAL VEIN. COMMENT: Patient medication list reviewed: Yes- Quality ID# 130:Eligible professional attests to doc umenting in the medical record they obtained, updated, or reviewed the patient's current medications. . Quality ID 145: Final reports for procedures using fluoroscopy that document radiation exposure alexa wojciech, or exposure time and number of fluorographic images (if radiation exposure indices are not avail able) Quality ID #76: The patient was prepped and draped using maximum sterile barrier technique including cap, mask, sterile gown, sterile gloves, a large sterile sheet, hand hygiene, and 2% Chlorhexidine fo r cutaneous antisepsis. When ultrasound is used, sterile ultrasound techniques are followed requiring sterile gel and sterile probes. TECHNICAL DOCUMENTATION: JOB ID: [id number] 2010 [employer]- All Rights Reserved rev-10/10 Reading location - IP/workstation name: [email or web address]
--- NOTE | 2020-02-14 10:10 | PDOC PROGRESS REPORT ---
Subjective Progress Note for:: 02/14/20 Subjective:: Patient is currently doing well She is denied any chest pain no short of breath Patient scheduled for the PICC line today Probably discharge tomorrow and patients require a total of 6 days of the IV vancomycin Patient's denied vancomycin Strop CBC and Chem-7 on coming and Friday Reason For Visit: FEBRILE NEUTROPENIA,CHEMOTHERAPY RELATED Physical Exam Vital Signs: Temp Pulse Resp BP Pulse Ox 99.1 F 88 18 75/62 L 100 02/14/20 08:10 02/14/20 08:10 02/14/20 08:10 02/14/20 08:10 02/14/20 08:10 Intake & Output 02/13/20 02/14/20 02/15/20 06:59 06:59 06:59 Intake Total 1620 3643 Output Total 800 Balance 1620 2843 Weight 72.4 kg 73.8 kg General appearance: PRESENT: no acute distress, well-developed, well-nourished Head exam: PRESENT: atraumatic, normocephalic Eye exam: PRESENT: conjunctiva pink, EOMI, PERRLA. ABSENT: scleral icterus Ear exam: PRESENT: normal external ear exam Mouth exam: PRESENT: moist, tongue midline Neck exam: PRESENT: full ROM. ABSENT: carotid bruit, JVD, lymphadenopathy, thyromegaly Cardiovascular exam: PRESENT: RRR. ABSENT: diastolic murmur, rubs, systolic murmur Pulses: PRESENT: normal dorsalis pedis pul, +2 pedal pulses bilateral Vascular exam: PRESENT: normal capillary refill GI/Abdominal exam: PRESENT: normal bowel sounds, soft. ABSENT: distended, guarding, mass, organolmegaly, rebound, tenderness Rectal exam: PRESENT: deferred Neurological exam: PRESENT: alert, awake, oriented to person, oriented to place, oriented to time, oriented to situation, CN II-XII grossly intact. ABSENT: motor sensory deficit Psychiatric exam: PRESENT: appropriate affect, normal mood. ABSENT: homicidal ideation, suicidal ideation Skin exam: PRESENT: dry, intact, warm. ABSENT: cyanosis, rash Results Laboratory Results: 02/14/20 04:27 02/14/20 04:27 02/13/20 02/14/20 02/14/20 08:00 04:27 04:27 WBC 4.6 RBC 2.67 L Hgb 8.7 L Hct 24.7 L MCV 93 MCH 32.5 MCHC 35.1 RDW 16.3 H Plt Count 81 L D Sodium 140.2 Potassium 3.8 Chloride 108 H Carbon Dioxide 24 Anion Gap 8 BUN 10 Creatinine 0.67 Est GFR ( Amer) > 60 Glucose 105 Calcium 9.1 Blood Type O POSITIVE 02/11/20 05:10 Clean Catch Midstream Urine Culture - Final NO GROWTH 2 DAYS Impressions: Chest X-Ray 02/06/20 20:09 IMPRESSION: No evidence of active intrathoracic disease. PICC Line Insertion 02/14/20 00:00 IMPRESSION: SUCCESSFUL PLACEMENT OF A 5 FR DUAL LUMEN 40 CM PICC IN THE LEFT BRACHIAL VEIN. Assessment & Plan - Diagnosis (1) Acute myeloid leukemia Qualifiers: Leukemia Active/Remission status: without remission Qualified Code(s): C92.00 - Acute myeloblastic leukemia, not having achieved remission Is this a current diagnosis for this admission?: Yes Plan: Overall stable, she will need bone marrow biopsy at [facility] in about 4 weeks. (2) Neutropenic fever Is this a current diagnosis for this admission?: Yes Plan: Resolved, patient will require 9 to 10 days of IV vancomycin (3) Pancytopenia Is this a current diagnosis for this admission?: Yes Plan: Resolving, will need to follow-up (4) Essential hypertension Is this a current diagnosis for this admission?: Yes (5) Major depression Qualifiers: Psychotic features: without psychotic features Is this a current diagnosis for this admission?: Yes (6) Schizophrenia Qualifiers: Schizophrenia type: unspecified Qualified Code(s): F20.9 - Schizophrenia, unspecified Is this a current diagnosis for this admission?: Yes (7) Sepsis Qualifiers: Sepsis type: sepsis due to unspecified organism Severe sepsis shock status: unspecified Is this a current diagnosis for this admission?: Yes (8) Hematuria Qualifiers: Hematuria type: unspecified type Qualified Code(s): R31.9 - Hematuria, unspecified Is this a current diagnosis for this admission?: Yes - Time Time Spent with patient: 15-24 minutes Level of Care: IMCU Medications reviewed and adjusted accordingly: Yes Anticipated discharge: Other Anticipated DC Timeframe: Other - Plan Summary Plan Summary: Continues to current medications
[2020-02-14] MEDS: FLUCONAZOLE 100 MG TABLET PO SCH (11:24)
[2020-02-14] MEDS: BENZTROPINE MESYLATE 1 MG TABLET PO SCH ×2 (11:24→17:34)
[2020-02-14] MEDS: VALACYCLOVIR HCL 500 MG TABLET PO SCH (11:25)
[2020-02-14] MEDS: RISPERIDONE 1 MG TABLET PO SCH ×2 (11:25→17:34)
[2020-02-14] MEDS: LEVOFLOXACIN 500 MG TABLET PO SCH (11:25)
[2020-02-14] MEDS: FAMOTIDINE 20 MG TABLET PO SCH ×2 (11:26→17:40)
[2020-02-15] MEDS: VANCOMYCIN HCL 750 MG in DEXTROSE 5%-WATER 250 ML IV SCH ×2 (01:52→10:21)
[2020-02-15] MEDS: NORMAL SALINE 1000 ML 1,000 ML IV PRN (01:58)
--- NOTE | 2020-02-15 07:51 | PDOC PROGRESS REPORT ---
Subjective Progress Note for:: 02/15/20 Subjective:: Doing better, home health set up planned for dc home today Reason For Visit: FEBRILE NEUTROPENIA,CHEMOTHERAPY RELATED Physical Exam Vital Signs: Temp Pulse Resp BP Pulse Ox 99.2 F 84 18 123/64 100 02/14/20 16:18 02/15/20 02:00 02/14/20 16:18 02/14/20 16:18 02/14/20 16:18 Intake & Output 02/14/20 02/15/20 02/16/20 06:59 06:59 06:59 Intake Total 3643 1989 Output Total 800 500 Balance 2843 1490 Weight 73.8 kg 74.6 kg General appearance: PRESENT: no acute distress, well-developed, well-nourished Head exam: PRESENT: atraumatic, normocephalic Eye exam: PRESENT: conjunctiva pink, EOMI, PERRLA. ABSENT: scleral icterus Ear exam: PRESENT: normal external ear exam Mouth exam: PRESENT: moist, tongue midline Neck exam: ABSENT: carotid bruit, JVD, lymphadenopathy, thyromegaly Respiratory exam: PRESENT: clear to auscultation tank. ABSENT: rales, rhonchi, wheezes Cardiovascular exam: PRESENT: RRR. ABSENT: diastolic murmur, rubs, systolic murmur Pulses: PRESENT: normal dorsalis pedis pul Vascular exam: PRESENT: normal capillary refill GI/Abdominal exam: PRESENT: normal bowel sounds, soft. ABSENT: distended, guarding, mass, organolmegaly, rebound, tenderness Rectal exam: PRESENT: deferred Extremities exam: PRESENT: full ROM. ABSENT: calf tenderness, clubbing, pedal edema Neurological exam: PRESENT: alert, awake, oriented to person, oriented to place, oriented to time, oriented to situation, CN II-XII grossly intact. ABSENT: motor sensory deficit Psychiatric exam: PRESENT: appropriate affect, normal mood. ABSENT: homicidal ideation, suicidal ideation Skin exam: PRESENT: dry, intact, warm. ABSENT: cyanosis, rash Results Laboratory Results: 02/14/20 04:27 02/14/20 04:27 02/09/20 14:40 Blood Blood Culture - Final NO GROWTH IN 5 DAYS 02/09/20 14:26 Blood Blood Culture - Final NO GROWTH IN 5 DAYS Impressions: Chest X-Ray 02/06/20 20:09 IMPRESSION: No evidence of active intrathoracic disease. PICC Line Insertion 02/14/20 00:00 IMPRESSION: SUCCESSFUL PLACEMENT OF A 5 FR DUAL LUMEN 40 CM PICC IN THE LEFT BRACHIAL VEIN. Assessment & Plan - Diagnosis (1) Acute myeloid leukemia Qualifiers: Leukemia Active/Remission status: without remission Qualified Code(s): C92.00 - Acute myeloblastic leukemia, not having achieved remission Is this a current diagnosis for this admission?: Yes Plan: fu in office next week (2) Neutropenic fever Is this a current diagnosis for this admission?: Yes Plan: 6 more days IV vanc at home (3) Pancytopenia Is this a current diagnosis for this admission?: Yes Plan: repeat cbc thru home health mondays and - Time Time Spent with patient: 15-24 minutes
[2020-02-15] MEDS ORDERED: NORMAL SALINE 10 ML SDV (AFTER EACH USE) IV PRN (08:30)
[2020-02-15] MEDS: MEDROXYPROGESTERONE ACET 10 MG TABLET PO SCH (08:47)
[2020-02-15] MEDS: FLUOXETINE HCL 20 MG CAPSULE PO SCH (08:47)
[2020-02-15] MEDS ORDERED: NORMAL SALINE 10 ML SDV (SCHEDULED) IV SCH (10:00)
[2020-02-15] MEDS: RISPERIDONE 1 MG TABLET PO SCH (10:15)
[2020-02-15] MEDS: BENZTROPINE MESYLATE 1 MG TABLET PO SCH (10:15)
[2020-02-15] MEDS: FAMOTIDINE 20 MG TABLET PO SCH (10:15)
[2020-02-15] MEDS: VALACYCLOVIR HCL 500 MG TABLET PO SCH (10:16)
[2020-02-15] MEDS: LEVOFLOXACIN 500 MG TABLET PO SCH (10:16)
[2020-02-15 11:33] LABS: VANCOMYCIN,TROUGH 19.7 ug/mL (5.0-20.0)
--- NOTE | 2020-02-15 16:04 | PDOC DISCHARGE SUMMARY ---
Impression - Admit/DC Date/PCP Admission Date/Primary Care Provider: 02/07/20 01:09 RONNA NAVARRO MD Discharge Date: 02/15/20 - Discharge Diagnosis (1) Acute myeloid leukemia Is this a current diagnosis for this admission?: Yes (2) Neutropenic fever Is this a current diagnosis for this admission?: Yes (3) Pancytopenia Is this a current diagnosis for this admission?: Yes (4) Essential hypertension Is this a current diagnosis for this admission?: Yes (5) Major depression Is this a current diagnosis for this admission?: Yes (6) Schizophrenia Is this a current diagnosis for this admission?: Yes (7) Sepsis Is this a current diagnosis for this admission?: Yes (8) Hematuria Is this a current diagnosis for this admission?: Yes - Additional Information Resuscitation Status: Full Code Referrals: MISA MAYER PA [NO LOCAL MD] - 02/24/20 9:45 am RONNA NAVARRO MD [Primary Care Provider] - 02/21/20 3:30 pm Home Medications: Benztropine Mesylate [Cogentin 1 mg Tablet] 1 mg PO BID 04/29/14 Fluoxetine HCl [Prozac 20 mg Capsule] 20 mg PO QAM 04/29/14 Risperidone [Risperdal] 3 mg PO BID 04/29/14 Famotidine [Pepcid 20 mg Tablet] 20 mg PO BID 01/01/20 Fluconazole [Diflucan] 400 mg PO DAILY 01/01/20 Levofloxacin [Levaquin 500 mg Tablet] 500 mg PO DAILY 01/01/20 Medroxyprogesterone Acet [Provera 10 mg Tablet] 10 mg PO QAM 01/01/20 Midostaurin [Rydapt] 50 mg PO BID 01/01/20 Valacyclovir HCl [Valtrex 500 mg Tablet] 500 mg PO DAILY 01/01/20 Ondansetron HCl [Zofran 8 mg Tablet] 8 mg PO Q8HP PRN 02/07/20 Polyethylene Glycol 3350 [Miralax Powder 17 gm/Packet] 1 packet PO DAILYP PRN 02/07/20 Tramadol HCl [Ultram 50 mg Tablet] 50 mg PO Q6HP PRN 02/07/20 History of Present Illiness History of Present Illness: SASHA SHARMA is a 50 year old female This is a 50-year-old female with a history of acute myeloid leukemia currently see the [facility] with the active chemotherapy and also see her Dr. Garth finnegan oncology came to the emergency department because starting the fever 101 and patient's white count was 0.1 and platelet was 5 which is mostly related to the chemotherapy neutropenic fever and decided to admit in the hospital for further evaluation and treatments Patient's denied any chest pain no short of breath no contact with any COVID Patient's denied any cough no congestions no abdominal pain no nausea no vomiting Discussed with the oncology suggest the continues the broad-spectrum IV antibiotic until the cultures back Hospital Course Hospital Course: Is a 50-year-old female admitted because of the neutropenic fever and the diagnosed with the Staphylococcus sepsis patient was put on IV vancomycin's and subsequent culture was negative Also have a pancytopenia due to the AML follow-up with oncology receiving the platelet transfusions Patient is otherwise doing well afebrile except running and low-grade fever patient's continues to follow with the [facility] and Dr. Derian finnegan here Patient's at this point infectious disease discuss and suggest the patient need a 14 days after negative culture which patient received the 7 days already here in another 7 days outpatients but of the PICC line We will follow the vancomycin strep and Chem-7 Patient otherwise denied any problems doing well Physical Exam Vital Signs: Temp Pulse Resp BP Pulse Ox 98.6 F 100 18 111/59 L 100 02/15/20 11:21 02/15/20 11:21 02/15/20 11:21 02/15/20 11:21 02/15/20 11:21 Intake & Output 02/14/20 02/15/20 02/16/20 06:59 06:59 06:59 Intake Total 3643 1990 740 Output Total 136 637 5128 Balance 2843 1490 -260 Weight 73.8 kg 74.6 kg General appearance: PRESENT: no acute distress, well-developed, well-nourished Head exam: PRESENT: atraumatic, normocephalic Eye exam: PRESENT: conjunctiva pink, EOMI, PERRLA. ABSENT: scleral icterus Ear exam: PRESENT: normal external ear exam Mouth exam: PRESENT: moist, tongue midline Neck exam: ABSENT: carotid bruit, JVD, lymphadenopathy, thyromegaly Respiratory exam: PRESENT: clear to auscultation tank. ABSENT: rales, rhonchi, wheezes Cardiovascular exam: PRESENT: RRR. ABSENT: diastolic murmur, rubs, systolic murmur Pulses: PRESENT: normal dorsalis pedis pul Vascular exam: PRESENT: normal capillary refill GI/Abdominal exam: PRESENT: normal bowel sounds, soft. ABSENT: distended, guarding, mass, organolmegaly, rebound, tenderness Rectal exam: PRESENT: deferred Extremities exam: PRESENT: full ROM. ABSENT: calf tenderness, clubbing, pedal edema Neurological exam: PRESENT: alert, awake, oriented to person, oriented to place, oriented to time, oriented to situation, CN II-XII grossly intact. ABSENT: motor sensory deficit Psychiatric exam: PRESENT: appropriate affect, normal mood. ABSENT: homicidal ideation, suicidal ideation Skin exam: PRESENT: dry, intact, warm. ABSENT: cyanosis, rash Results Laboratory Results: WBC 4.6 10^3/uL (4.0-10.5) 02/14/20 04:27 RBC 2.67 10^6/uL (3.72-5.28) L 02/14/20 04:27 Hgb 8.7 g/dL (12.0-15.5) L 02/14/20 04:27 Hct 24.7 % (36.0-47.0) L 02/14/20 04:27 MCV 93 fl (80-97) 02/14/20 04:27 MCH 32.5 pg (27.0-33.4) 02/14/20 04:27 MCHC 35.1 g/dL (32.0-36.0) 02/14/20 04:27 RDW 16.3 % (11.5-14.0) H 02/14/20 04:27 Plt Count 81 10^3/uL (150-450) L D 02/14/20 04:27 Lymph % (Auto) Not Reportable 02/13/20 05:30 Braxton % (Auto) Not Reportable 02/13/20 05:30 Eos % (Auto) Not Reportable 02/13/20 05:30 Baso % (Auto) Not Reportable 02/13/20 05:30 Absolute Neuts (auto) Not Reportable 02/13/20 05:30 Absolute Lymphs (auto) Not Reportable 02/13/20 05:30 Absolute Monos (auto) Not Reportable 02/13/20 05:30 Absolute Eos (auto) Not Reportable 02/13/20 05:30 Absolute Basos (auto) Not Reportable 02/13/20 05:30 Total Counted 100 02/13/20 05:30 Seg Neutrophils % Not Reportable 02/13/20 05:30 Seg Neuts % (Manual) 76 % (42-78) 02/13/20 05:30 Band Neutrophils % 4 % (3-5) 02/12/20 05:14 Lymphocytes % (Manual) 15 % (13-45) 02/13/20 05:30 Monocytes % (Manual) 9 % (3-13) 02/13/20 05:30 Eosinophils % (Manual) 0 % (0-6) 02/13/20 05:30 Basophils % (Manual) 0 % (0-2) 02/13/20 05:30 Abs Neuts (Manual) 2.3 10^3/uL (1.7-8.2) 02/13/20 05:30 Abs Lymphs (Manual) 0.5 10^3/uL (0.5-4.7) 02/13/20 05:30 Abs Monocytes (Manual) 0.3 10^3/uL (0.1-1.4) 02/13/20 05:30 Absolute Eos (Manual) 0.0 10^3/uL (0.0-0.6) 02/13/20 05:30 Abs Basophils (Manual) 0.0 10^3/uL (0.0-0.2) 02/13/20 05:30 Toxic Granulation 1+ 02/12/20 05:14 Dohle Bodies PRESENT 02/12/20 05:14 Platelet Comment DECREASED 02/13/20 05:30 Poikilocytosis SLIGHT 02/11/20 05:29 Anisocytosis 1+ 02/13/20 05:30 Tear Drop Cells SLIGHT 02/12/20 05:14 Ovalocytes SLIGHT 02/13/20 05:30 PT 14.4 SEC (11.4-15.4) 02/06/20 21:35 INR 1.10 02/06/20 21:35 VBG pH 7.41 (7.30-7.42) 02/06/20 21:35 VBG pCO2 37.4 mmHg (35-63) 02/06/20 21:35 VBG HCO3 23.0 mmol/L (20-32) 02/06/20 21:35 VBG Base Excess -1.5 mmol/L 02/06/20 21:35 Sodium 140.2 mmol/L (137-145) 02/14/20 04:27 Potassium 3.8 mmol/L (3.6-5.0) 02/14/20 04:27 Chloride 108 mmol/L (98-107) H 02/14/20 04:27 Carbon Dioxide 24 mmol/L (22-30) 02/14/20 04:27 Anion Gap 8 (5-19) 02/14/20 04:27 BUN 10 mg/dL (7-20) 02/14/20 04:27 Creatinine 0.70 mg/dL (0.52-1.25) 02/15/20 10:40 Est GFR ( Amer) > 60 (>60) 02/15/20 10:40 Est GFR (MDRD) Non-Af > 60 (>60) 02/15/20 10:40 Glucose 105 mg/dL (75-110) 02/14/20 04:27 Lactic Acid 0.9 mmol/L (0.7-2.1) 02/07/20 04:06 Calcium 9.1 mg/dL (8.4-10.2) 02/14/20 04:27 Total Bilirubin 0.3 mg/dL (0.2-1.3) 02/08/20 05:39 Direct Bilirubin 0.2 mg/dL (0.0-0.4) 02/08/20 05:39 Neonat Total Bilirubin Not Reportable 02/08/20 05:39 Neonat Direct Bilirubin Not Reportable 02/08/20 05:39 Neonat Indirect Bili Not Reportable 02/08/20 05:39 AST 12 U/L (14-36) L 02/08/20 05:39 ALT 12 U/L (<35) 02/08/20 05:39 Alkaline Phosphatase 73 U/L (38-126) 02/08/20 05:39 Total Protein 5.7 g/dL (6.3-8.2) L 02/08/20 05:39 Albumin 2.9 g/dL (3.5-5.0) L 02/08/20 05:39 Urine Color YELLOW 02/11/20 05:10 Urine Appearance CLEAR 02/11/20 05:10 Urine pH 6.0 (5.0-9.0) 02/11/20 05:10 Ur Specific [place] 1.012 02/11/20 05:10 Urine Protein NEGATIVE mg/dL (NEGATIVE) 02/11/20 05:10 Urine Glucose (UA) NEGATIVE mg/dL (NEGATIVE) 02/11/20 05:10 Urine Ketones NEGATIVE mg/dL (NEGATIVE) 02/11/20 05:10 Urine Blood LARGE (NEGATIVE) H 02/11/20 05:10 Urine Nitrite NEGATIVE (NEGATIVE) 02/11/20 05:10 Urine Bilirubin NEGATIVE (NEGATIVE) 02/11/20 05:10 Urine Urobilinogen NEGATIVE mg/dL (<2.0) 02/11/20 05:10 Ur Leukocyte Esterase NEGATIVE (NEGATIVE) 02/11/20 05:10 Urine WBC (Auto) 38 /HPF 02/11/20 05:10 Urine RBC (Auto) >182 /HPF 02/11/20 05:10 Urine Bacteria (Auto) TRACE /HPF 02/11/20 05:10 Squamous Epi Cells Auto 1 /HPF 02/11/20 05:10 Urine Mucus (Auto) RARE /LPF 02/06/20 20:43 Urine Ascorbic Acid NEGATIVE (NEGATIVE) 02/11/20 05:10 Time Trough Drawn 1040 02/15/20 10:40 Vancomycin Trough 19.7 ug/mL (5.0-20.0) 02/15/20 10:40 Slides for Path Review PATHOLOGIST REVIEWED 02/06/20 21:35 Blood Type O POSITIVE 02/13/20 08:00 Blood Type Confirm O POSITIVE 02/07/20 00:10 Antibody Screen NEGATIVE 02/07/20 00:10 Crossmatch See Detail 02/07/20 00:10 Impressions: Chest X-Ray 02/06/20 20:09 IMPRESSION: No evidence of active intrathoracic disease. PICC Line Insertion 02/14/20 00:00 IMPRESSION: SUCCESSFUL PLACEMENT OF A 5 FR DUAL LUMEN 40 CM PICC IN THE LEFT BRACHIAL VEIN. Plan Time Spent: Greater than 30 Minutes - Follow-up with the home health follow with the [facility] Stroke Is this a Stroke Patient?: No Acute Heart Failure Is this a Heart Failure Patient?: No
[2020-02-15 17:01] VITALS: BP 119/66
== END 2020-02-15 17:49 | disposition home or self-care (01) | DRG 808 ==
LOC: ER 19:25 → EH 02-07 01:09 → 5 02-07 02:36
PROVIDERS: ADMIT Family Medicine; ATTEND Family Medicine
PROC: 30233R1 Transfusion of Nonautologous Platelets into Peripheral Vein, Percutaneous Approach (ICD-10-PCS; principal; 2020-02-07)
PROC: 30233N1 Transfusion of Nonautologous Red Blood Cells into Peripheral Vein, Percutaneous Approach (ICD-10-PCS; 2020-02-08)
PROC: 02PY33Z Removal of Infusion Device from Great Vessel, Percutaneous Approach (ICD-10-PCS; 2020-02-09)
PROC: 02HV33Z Insertion of Infusion Device into Superior Vena Cava, Percutaneous Approach (ICD-10-PCS; 2020-02-14)
PROC: B518ZZA Fluoroscopy of Superior Vena Cava, Guidance (ICD-10-PCS; 2020-02-14)
PROC: B548ZZA Ultrasonography of Superior Vena Cava, Guidance (ICD-10-PCS; 2020-02-14)
DX: D61.810 Antineoplastic chemotherapy induced pancytopenia (principal); A41.01 Sepsis due to Methicillin susceptible Staphylococcus aureus; T82.7XXA Infection and inflammatory reaction due to other cardiac and vascular devices, implants and grafts, initial encounter; C92.00 Acute myeloblastic leukemia, not having achieved remission; Z16.24 Resistance to multiple antibiotics; D61.818 Other pancytopenia; R50.81 Fever presenting with conditions classified elsewhere; T45.1X5A Adverse effect of antineoplastic and immunosuppressive drugs, initial encounter; Y92.9 Unspecified place or not applicable; I10 Essential (primary) hypertension; F32.9 Major depressive disorder, single episode, unspecified; F20.9 Schizophrenia, unspecified; R31.9 Hematuria, unspecified; Z79.899 Other long term (current) drug therapy; Z82.61 Family history of arthritis; Z82.49 Family history of ischemic heart disease and other diseases of the circulatory system; Z82.3 Family history of stroke; Z83.3 Family history of diabetes mellitus; Z80.9 Family history of malignant neoplasm, unspecified
CPT/HCPCS: 36415; 36430; 36573; 71045; 80048; 80053; 80202; 81001; 82565; 82803; 83605; 85025; 85027; 85610; 86850; 86900; 86901; 86920; 87040; 87077; 87086; 87150; 87186; 93005; 93010; 96361; 96365; 99285; J0692; J1642; J3370; J3490; J7030; J7060; P9016; P9035

== ENCOUNTER → 2020-03-06 | Outpatient (CLI) | payer MEDICAID | LOC: OD 10:21 | PROVIDERS: ATTEND Physician Assistant | DX: A41.9 Sepsis, unspecified organism (principal) | CPT/HCPCS: 36415; 87040 ==